=== PATIENT | female | born 1955 | race Caucasian/White ===

== ENCOUNTER 2019-04-10 13:05 | Inpatient (IN) | payer OTHER ==
[2019-04-10 14:08] LABS: BASOPHILS % (AUTO) 0.4 %; EOSINOPHILS # (AUTO) 0.1 10^3/uL (0.0-0.7); HGB - HEMOGLOBIN 12.9 g/dL (12.0-16.0); LYMPHOCYTES # (AUTO) 0.9 10^3/uL (1.5-3.5); LYMPHOCYTES % (AUTO) 7.8 %; MEAN CORPUSCULAR HEMOGLOBIN 28.3 pg (27.0-31.0); MEAN CORPUSCULAR HGB CONC 31.9 g/dL (32.0-36.0); MEAN CORPUSCULAR VOLUME 88.8 fL (81.0-99.0); MEAN PLATELET VOLUME 10.9 fL (7.9-10.8); MONOCYTES # (AUTO) 0.5 10^3/uL (0.0-1.0); MONOCYTES % (AUTO) 4.8 %; NEUTROPHILS # (AUTO) 9.5 10^3/uL (1.5-6.6); NEUTROPHILS % (AUTO) 85.4 %; PLT - PLATELET COUNT 190 10^3/uL (130-450); RED BLOOD COUNT 4.56 10^6/uL (4.20-5.40); RED CELL DISTRIBUTION WIDTH 13.5 % (12.0-15.0); WHITE BLOOD COUNT 11.1 x10^3/uL (4.8-10.8)
[2019-04-10 14:25] LABS: ALBUMIN/GLOBULIN RATIO 1.3 (1.0-2.2); BILIRUBIN,TOTAL 1.3 mg/dL (0.2-1.0); CALCIUM 9.1 mg/dL (8.5-10.3); CREATININE 0.8 mg/dL (0.4-1.0)
--- NOTE | 2019-04-10 15:36 | ED Physician Documentation ---
PD HPI ABD PAIN - Stated complaint Stated Complaint: ABD PX - Chief complaint Chief Complaint: Abd Pain - History obtained from History obtained from: Patient - History of Present Illness Timing - onset: How many days ago (1-2) Timing - duration: Days (1-2) Timing - details: Gradual onset, Still present Quality: Cramping (initially), Aching, Sharp (today), Pain Location: LLQ Radiation: Lower back Improved by: Laying still. No: Eating Worsened by: Moving. No: Eating, Breathing Associated symptoms: No: Fever, Nausea, Vomiting, Diarrhea, Melena Similar symptoms before: Diagnosis (Had diverticulitis with some bleeding in 2014 and had clipping of the bleeding vessel. I believe this was done through colonoscopy.) Recently seen: Not recently seen Review of Systems Constitutional: denies: Fever, Myalgias Nose: denies: Rhinorrhea / runny nose, Congestion Throat: denies: Sore throat Respiratory: denies: Cough GI: reports: Abdominal Pain. denies: Abdominal Swelling, Vomiting, Constipation, Diarrhea : denies: Dysuria, Frequency Neurologic: denies: Generalized weakness, Focal weakness, Numbness, Near syncope PD PAST MEDICAL HISTORY - Past Medical History Cardiovascular: None Respiratory: None Neuro: None Endocrine/Autoimmune: None GI: Diverticulitis (4 years ago) - Allergies Allergies/Adverse Reactions: Allergies Allergy/AdvReac Type Severity Reaction Status Date / Time iodine Allergy Unknown Verified 04/10/19 18:21 PD ED PE NORMAL - Vitals Vital signs reviewed: Yes - General General: Alert and oriented X 3, Well developed/nourished - HEENT HEENT: Moist mucous membranes, Pharynx benign - Neck Neck: Supple, no meningeal sign, No adenopathy - Cardiac Cardiac: RRR, No murmur - Respiratory Respiratory: Clear bilaterally - Abdomen Abdomen: Soft, Non distended, No organomegaly, Other (tender LLQ with local guarding but no percussion. No rebound nor referred tenderness. ) - Female Female : Deferred - Rectal Rectal: Deferred - Back Back: No CVA TTP - Derm Derm: Normal color, Warm and dry - Extremities Extremities: Normal ROM s pain - Neuro Neuro: Alert and oriented X 3, No motor deficit, Normal speech Results - Vitals Vitals: Vital Signs - 24 hr 04/10/19 13:25 Temperature 36.5 C Heart Rate 85 Respiratory 16 Rate Blood Pressure 185/95 H O2 Saturation 98 Oxygen O2 Source Room air - Labs Labs: Laboratory Tests 04/10/19 04/10/19 04/10/19 13:47 13:47 16:00 WBC 11.1 H RBC 4.56 Hgb 12.9 Hct 40.5 MCV 88.8 MCH 28.3 MCHC 31.9 L RDW 13.5 Plt Count 190 MPV 10.9 H Neut # (Auto) 9.5 H Lymph # (Auto) 0.9 L [place] # (Auto) 0.5 Eos # (Auto) 0.1 Baso # (Auto) 0.0 Absolute Nucleated RBC 0.00 Nucleated RBC % 0.0 Sodium 139 Potassium 3.9 Chloride 102 Carbon Dioxide 28 Anion Gap 9.0 BUN 12 Creatinine 0.8 Estimated GFR (MDRD) 73 L Glucose 107 H Calcium 9.1 Total Bilirubin 1.3 H AST 22 ALT 18 Alkaline Phosphatase 91 Total Protein 7.0 Albumin 4.0 Globulin 3.0 Albumin/Globulin Ratio 1.3 Lipase 25 Urine Color YELLOW Urine Clarity CLEAR Urine pH 6.0 Ur Specific [place] 1.010 Urine Protein NEGATIVE Urine Glucose (UA) NEGATIVE Urine Ketones NEGATIVE Urine Occult Blood TRACE-LYSE Urine Nitrite NEGATIVE Urine Bilirubin NEGATIVE Urine Urobilinogen 0.2 (NORMAL) Ur Leukocyte Esterase NEGATIVE Ur Microscopic Review NOT INDICATED Urine Culture Comments NOT INDICATED - Rads (name of study) abd CT Radiology: Prelim report reviewed, Discussed with rads (Left lower quadrant diverticula with diverticulitis and several small air bubbles under the diaphragm. No abscess nor notable free fluid), See rad report PD MEDICAL DECISION MAKING - ED course Complexity details: reviewed results, considered differential, d/w patient, d/w reimbursement consultant (Dr. Mead, surgery, who was concerned about the microperforation, and wanted Unasyn/Flagyl and admission to Hospitalist. He will consult and see if patient develops need for surgery. Talked with Hospitalist who will place patient in the hospital. ) Departure - Departure Disposition: [facility] DC/Xfer Clinical Impression: Acute diverticulitis Condition: Stable Record reviewed to determine appropriate education?: Yes Discharge Date/Time: 04/10/19 18:51
[2019-04-10] MEDS ORDERED: SODIUM CHLORIDE 0.9% 1,000 ML IV ONE (15:58)
[2019-04-10] MEDS ORDERED: cefTRIAXone 1 GM VIAL IVP STA (15:58)
[2019-04-10] MEDS ORDERED: KETOROLAC 30 MG/ML VIAL IVP STA (15:58)
[2019-04-10] MEDS ORDERED: ACETAMINOPHEN 325 MG TABLET PO STA (15:58)
[2019-04-10 16:11] LABS: BILIRUBIN,URINE NEGATIVE (NEGATIVE); GLUCOSE, URINE (UA) NEGATIVE (NEGATIVE); KETONES,URINE (UA) NEGATIVE (NEGATIVE); LEUKOCYTE ESTERASE, URINE NEGATIVE (NEGATIVE); NITRITE,URINE NEGATIVE (NEGATIVE); OCCULT BLOOD,URINE TRACE-LYSE (NEGATIVE); PROTEIN,URINE NEGATIVE (NEGATIVE); UROBILINOGEN,URINE 0.2 (NORMAL) E.U./dL (NORMAL)
[2019-04-10 16:13] LABS: CLARITY,URINE CLEAR (CLEAR)
[2019-04-10] MEDS ORDERED: IOVERSOL 320 100 ML VIAL IVP ONE ×2 (16:16→17:46)
[2019-04-10] MEDS ORDERED: metroNIDAZOLE 500 MG/100 ML 500 MG/100 ML BAG IV ONE (17:12)
--- NOTE | 2019-04-10 17:13 | CT Report ---
Reason: left lower abd pain Procedure Date: 04/10/2019 Accession Number: [id number] / [id number] Procedure: CT - Abdomen/Pelvis W CPT Code: Final Report FULL RESULT: EXAM: CT ABDOMEN AND PELVIS EXAM DATE: 04/10/2019 04:42 PM. CLINICAL HISTORY: Left lower abd pain. COMPARISONS: None. TECHNIQUE: Routine helical CT imaging was performed through the abdomen and pelvis. IV contrast: OPTI 320 100ML. Enteric contrast: No. Reconstructions: Coronal and sagittal. In accordance with CT protocol optimization, one or more of the following dose reduction techniques were utilized for this exam: automated exposure control, adjustment of mA and/or KV based on patient size, or use of iterative reconstructive technique. FINDINGS: Lung Bases: Clear lung bases. No effusion. Moderate-sized hiatal hernia. Liver: Mild diffuse hypoattenuation of parenchyma. Otherwise unremarkable. Gallbladder/Bile Ducts: Surgically absent. No ductal dilation. Spleen: Normal. Pancreas: Normal. Adrenal Glands: Normal. Kidneys: Normal. No masses or hydronephrosis. Peritoneal Cavity/Bowel: Marked colonic diverticulosis with localized wall thickening and infiltration of fat adjacent to the descending sigmoid junction. Small loss of free intraperitoneal air track to the diaphragm. Mild dilation of small bowel loops in the left mid to upper abdomen, most likely ileus. No free fluid, significant bowel dilation, or lymphadenopathy. Normal appendix. Pelvic Organs: Normal. The bladder and visualized pelvic organs are within normal limits. Vasculature: No aneurysms or other significant abnormality. Bones: Degenerative changes. Other: Small to moderate-sized bilateral inguinal hernias with fat involvement only. IMPRESSION: 1. Marked diverticulosis with acute diverticulitis. 2. Small amounts of free intraperitoneal air most likely originating from the diverticulitis. 3. Moderate-sized hiatal hernia, fatty liver, and other chronic or incidental findings. RADIA The critical result notification system was initiated by Dr. Jose Guadalupe Ramos at 05:07 PM on 04/10/2019. The above critical result findings were discussed with Anton Schafer by Dr. Jose Guadalupe Ramos at 05:11 PM on 04/10/2019.
[2019-04-10] MEDS ORDERED: PIPERACILLIN/TAZOBACTAM 3.375 GM in SODIUM CHLORIDE 0.9% MINIBAG 100 ML IV STA (17:19)
[2019-04-10] MEDS ORDERED: PROCHLORPERAZINE 10 MG/2 ML VIAL IVP PRN (17:50)
[2019-04-10] MEDS ORDERED: ONDANSETRON ODT 4 MG TABLET TL PRN (17:50)
[2019-04-10] MEDS ORDERED: hydrALAZINE INJ 20 MG/ML VIAL IVP PRN (18:14)
--- NOTE | 2019-04-10 18:17 | HISTORY & PHYSICAL EXAMINATION ---
Chief Complaint - Chief Complaint Chief Complaint: abdominal pain History of Present Illness - History of Present Illness HPI Comment/Other: Ms. Mcfarlane is a 63-yrs-old female with a PMH significant for diverticulitis with bleeding and clipping of the bleeding vessel in 2014, who present ER complain of left middle lower abdominal pain. pt report she had left middle lower abdominal pain beginning today morning. she denies nausea, vomiting, diarrhea, GI bleeding, fever, chill, chest pain, shortness of breath. CT of abdomen reveal acute diverticulitis, and small amounts of free air intraperitoneal. Route lab reveals slight elevated WBC. pt is afebrile, otherwise she is hemodynamical stable. surgeon was called by ER provider. pt is admitted for above medical reason. History - Family & Social History Family History: Mother: , Cancer, Father: Alive and Well Family History Comment/Other: pt report her mother from pancreatic cancer. her father is still alive with advanced parkinson now. Social History Notes: pt report she quit smoking about 3-4 yrs, she denies acohol and drug issue. she report she is living [place], came to visit her family in [place] Status: Full Code Meds/Allgy - Allergies Allergies/Adverse Reactions: Allergies Allergy/AdvReac Type Severity Reaction Status Date / Time etodolac Allergy Rash Verified 04/10/19 21:34 Review of Systems - Constitutional Constitutional: denies: Fatigue, Fever, Chills, Malaise, Weakness, Poor appetite, Diaphoresis, Night sweats - Eyes Eyes: denies: Pain, Irritation, Blurred vision, Spots in vision, Field loss, Vision loss, Dipolpia - Ears, Nose & Throat Ears, Nose & Throat: denies: Ear pain, Hearing loss, Tinnitus, Vertigo, Nasal pain, Nasal discharge, Nasal obstruction, Postnasal drainage, Sore throat, Mouth lesions - Cardiovascular Cariovascular: denies: Irregular heart rate, Palpitations, Chest pain, Edema, Lightheadedness, Syncope, Exertional dyspnea, Decr. exercise tolerance - Respiratory Respiratory: denies: Cough, Sputum production, Wheezing, Snoring, Hemoptysis, Orthopnea, SOB at rest, SOB with exertion - Gastrointestinal Gastrointestinal: reports: Abdominal pain. denies: Abdominal distention, Constipation, Diarrhea, Change in bowel habits, Rectal bleeding, Black stools, Bloody stools, Nausea, Vomiting, Bile emesis, Lloyd blood emesis, Coffee grounds emesis, Reflux/heartburn - Genitourinary Genitourinary: denies: Dysuria, Frequency, Urgency, Hematuria, Incontinence, Flank pain, Nocturia, Urethral discharge - Musculoskeletal Musculoskeletal: denies: Muscle pain, Back pain, Muscle aches, Stiffness, Limited range of motion, Muscle weakness, Gout, Joint pain - Integumentary Integumentary: denies: Rash, Pruritis, Lesions, Dryness, Lumps, Acne, Pigment changes, Nail changes - Neurological Neurological: denies: General weakness, Focal weakness, Headache, Dizziness, Numbness, Memory problems, Pre-existing deficit, Abnormal gait - Psychiatric Psychiatric: denies: Depression, Anxiety, Suicidal, Delusions, Hallucinations, Homicidal - Endocrine Endocrine: denies: Polyuria, Polydypsia, Polyphagia, Intolerance to cold - Hematologic/Lymphatic Hematologic/Lymphatic: denies: Anemia, Bruising, Petechiae, Blood clots, Lymphadenopathy, Bleeding tendencies Exam - Vital Signs Reviewed Vital Signs: Yes Vital Signs: Vital Signs x48h Temp Pulse Resp BP Pulse Ox 04/10/19 13:25 36.5 C 85 16 185/95 H 98 - Physical Exam General Appearance: positive: No acute distress, Alert. negative: Lethargic Eyes Bilateral: positive: Normal inspection, PERRL, EOMI. negative: No lid inflammation ENT: positive: ENT inspection nml, No signs of dehydration. negative: Purulent nasal drainage Neck: positive: Nml inspection, Thyroid nml, No JVD, Trachea midline. negative: Thyromegaly, Lymphadenopathy (R), Lymphadenopathy (L), Stiff neck, Tracheal deviation Respiratory: positive: Chest non-tender, No respiratory distress, Breath sounds nml. negative: Wheezes, Rales, Rhonchi Cardiovascular: positive: Regular rate & rhythm, No murmur, No gallop. negative: Irregularly irregular, Extrasystoles, Tachycardia, Bradycardia, JVD present, Systolic murmur, Diastolic murmur Peripheral Pulses: positive: 2+ Abdomen: positive: Non-tender, No organomegaly, Nml bowel sounds, No distention. negative: Tenderness, Guarding, Rebound Back: positive: Nml inspection. negative: CVA tenderness (R), CVA tenderness (L) Skin: positive: Color nml, No rash, Warm, Dry. negative: Cyanosis, Diaphoresis, Pallor Extremities: positive: Non-tender, Full ROM, Nml appearance. negative: Calf tenderness, Carlene's sign/cords Neurologic/Psychiatric: positive: Oriented x3, Motor nml, Sensation nml, Mood/affect nml. negative: Weakness, Sensory loss, Facial droop, Slurred/abnml speech Sepsis Event Note (H) - Evaluation Current Stage of Sepsis: Ruled out Conclusion/Plan - Problem List (1) Acute diverticulitis Conclusion/Plan: pt had hx of diverticulitis, CT reveal diverticulitis. pt has lower middle left abdominal pain, slight elevated WBC start Zosyn IVF pain control (2) Free intraperitoneal air Conclusion/Plan: concern pt if has perforation of bowel because free air at intraperitoneal. consulted with surgeon closely monitor pt, vital monitor (3) HTN (hypertension) Conclusion/Plan: slight elevated BP, which could be caused by abdominal pain. add hydralazine as PRN (4) Obesity (BMI 35.0-39.9 without comorbidity) Conclusion/Plan: advise pt loss of weight (5) Full code status Conclusion/Plan: pt request full code - Lab Results Fish Bones: 04/11/19 04:30 04/11/19 04:30 Core Measures - Anticipated LOS I expect patient to be DC'd or transferred within 96 hours.: Yes - DVT/VTE - Prophylaxis VTE/DVT Device ordered at admit?: Yes VTE/DVT Prophylaxis med ordered at admit?: Yes
[2019-04-10] MEDS: ACETAMINOPHEN 325 MG TABLET PO PRN (19:08)
[2019-04-10] MEDS: SODIUM CHLORIDE 0.9% 1,000 ML IV SCH (19:09)
[2019-04-11] MEDS: ACETAMINOPHEN 325 MG TABLET PO PRN ×4 (00:30→18:24)
[2019-04-11] MEDS: PIPERACILLIN/TAZOBACTAM 3.375 GM in SODIUM CHLORIDE 0.9% MINIBAG 100 ML IV SCH ×4 (00:30→17:32)
[2019-04-11] MEDS: SODIUM CHLORIDE FLUSH 0.9% 10 ML SYRINGE IVP SCH ×3 (00:31→17:01)
[2019-04-11 05:00] LABS: BASOPHILS % (AUTO) 0.4 %; EOSINOPHILS # (AUTO) 0.1 10^3/uL (0.0-0.7); EOSINOPHILS % (AUTO) 1.2 %; HGB - HEMOGLOBIN 11.5 g/dL (12.0-16.0); LYMPHOCYTES # (AUTO) 0.9 10^3/uL (1.5-3.5); LYMPHOCYTES % (AUTO) 10.4 %; MEAN CORPUSCULAR HEMOGLOBIN 29.1 pg (27.0-31.0); MEAN CORPUSCULAR HGB CONC 31.9 g/dL (32.0-36.0); MEAN CORPUSCULAR VOLUME 91.1 fL (81.0-99.0); MEAN PLATELET VOLUME 11.1 fL (7.9-10.8); MONOCYTES # (AUTO) 0.5 10^3/uL (0.0-1.0); MONOCYTES % (AUTO) 5.8 %; NEUTROPHILS % (AUTO) 81.6 %; PLT - PLATELET COUNT 154 10^3/uL (130-450); RED BLOOD COUNT 3.95 10^6/uL (4.20-5.40); RED CELL DISTRIBUTION WIDTH 13.4 % (12.0-15.0); WHITE BLOOD COUNT 8.6 x10^3/uL (4.8-10.8)
[2019-04-11 05:13] LABS: CALCIUM 8.4 mg/dL (8.5-10.3); CREATININE 0.7 mg/dL (0.4-1.0)
[2019-04-11] MEDS: POTASSIUM CHLOR 10 MEQ/100 ML 10 MEQ/100 ML BAG IV SCH ×4 (06:43→09:58)
[2019-04-11] MEDS: SODIUM CHLORIDE 0.9% 1,000 ML IV SCH ×2 (06:43→07:49)
--- NOTE | 2019-04-11 07:47 | CONSULTATION NOTE ---
Referring Provider Name of Referring Provider:: Gibson Chief Complaint - Chief Complaint Chief Complaint: LLQ pain History of Present Illness - History of Present Illness HPI Comment/Other: Timing - onset: How many days ago (1-2) Timing - duration: Days (1-2) Timing - details: Gradual onset, Still present Quality: Cramping (initially), Aching, Sharp (today), Pain Location: LLQ Radiation: Lower back Improved by: Laying still. No: Eating Worsened by: Moving. No: Eating, Breathing Associated symptoms: No: Fever, Nausea, Vomiting, Diarrhea, Melena Similar symptoms before: Diagnosis (Had diverticulitis with some bleeding in 2014 and had clipping of the bleeding vessel. I believe this was done through colonoscopy.) History - Past Medical History Cardiovascular: reports: None (Underwent colonoscopic clipping of diverticular bleed in the past) Respiratory: reports: None Neuro: reports: None Endocrine/Autoimmune: reports: None GI: reports: Diverticulitis Meds/Allgy - Allergies Allergies/Adverse Reactions: Allergies Allergy/AdvReac Type Severity Reaction Status Date / Time etodolac Allergy Rash Verified 04/10/19 21:34 Review of Systems - Gastrointestinal Gastrointestinal: reports: Abdominal pain (LLQ pain. Better somewhat this am) Exam - Vital Signs Reviewed Vital Signs: Yes Vital Signs: Vital Signs x48h Temp Pulse Pulse Resp BP Pulse Ox 04/11/19 04:06 36.9 C 88 18 98 04/11/19 00:00 36.9 C 88 18 159/54 H 98 - Physical Exam General Appearance: positive: No acute distress Eyes Bilateral: positive: Normal inspection Neck: positive: Nml inspection Respiratory: positive: No respiratory distress Abdomen: positive: Tenderness (Moderate tenderness LLQ. No rebound) Conclusion and Plan - Lab Results Laboratory Results 04/11/19 04:30: Sodium 140, Potassium 3.2 L, Chloride 105, Carbon Dioxide 27, Anion Gap 8.0, BUN 9, Creatinine 0.7, Estimated GFR (MDRD) 85 L, Glucose 101 H, Calcium 8.4 L 04/11/19 04:30: WBC 8.6, RBC 3.95 L, Hgb 11.5 L, Hct 36.0 L, MCV 91.1, MCH 29.1, MCHC 31.9 L, RDW 13.4, Plt Count 154, MPV 11.1 H, Neut # (Auto) 7.0 H, Lymph # (Auto) 0.9 L, [place] # (Auto) 0.5, Eos # (Auto) 0.1, Baso # (Auto) 0.0, Absolute Nucleated RBC 0.00, Nucleated RBC % 0.0 04/10/19 16:00: Urine Color YELLOW, Urine Clarity CLEAR, Urine pH 6.0, Ur Specific [place] 1.010, Urine Protein NEGATIVE, Urine Glucose (UA) NEGATIVE, Urine Ketones NEGATIVE, Urine Occult Blood TRACE-LYSE, Urine Nitrite NEGATIVE, Urine Bilirubin NEGATIVE, Urine Urobilinogen 0.2 (NORMAL), Ur Leukocyte Esterase NEGATIVE, Ur Microscopic Review NOT INDICATED, Urine Culture Comments NOT INDICATED 04/10/19 13:47: Sodium 139, Potassium 3.9, Chloride 102, Carbon Dioxide 28, Anion Gap 9.0, BUN 12, Creatinine 0.8, Estimated GFR (MDRD) 73 L, Glucose 107 H, Calcium 9.1, Total Bilirubin 1.3 H, AST 22, ALT 18, Alkaline Phosphatase 91, Total Protein 7.0, Albumin 4.0, Globulin 3.0, Albumin/Globulin Ratio 1.3, Lipase 25 04/10/19 13:47: WBC 11.1 H, RBC 4.56, Hgb 12.9, Hct 40.5, MCV 88.8, MCH 28.3, MCHC 31.9 L, RDW 13.5, Plt Count 190, MPV 10.9 H, Neut # (Auto) 9.5 H, Lymph # (Auto) 0.9 L, [place] # (Auto) 0.5, Eos # (Auto) 0.1, Baso # (Auto) 0.0, Absolute Nucleated RBC 0.00, Nucleated RBC % 0.0 - Diagnosis Diagnosis: Acute diverticulitis w/microperforation - Plan Plan: Cont IV ABX / Bowel rest May need elective sigmoidectomy in the future
[2019-04-11] MEDS: ENOXAPARIN 40 MG/0.4 ML SYRINGE SUBQ SCH (09:58)
--- NOTE | 2019-04-11 11:26 | PHARMACY PROGRESS NOTE ---
- Best Possible Medication History Admit Date and Time: 04/10/19 1750 Processed by: Pharmacy Medication History completed: Yes Patient Interview: Pt interview ONLY source As the person ultimately responsible for medication therapy, providers are able to order a medication from an existing home medication list in [facility] via the "Reconcile Routine" prior to Confirmation of that medication by student support counselor. Such practice is discouraged except when the physician, in their clinical judgment, deems that a medical need exists for a medication without regard to previous use.
--- NOTE | 2019-04-11 12:45 | PROVIDER PROGRESS NOTE ---
Assessment/Plan - Problem List (1) Acute diverticulitis Assessment/Plan: 04/11 pt report she feel better, abdominal pain is better. she denies fever, chill, N/V/D. WBC is running down to normal now. per surgeon, pt is still on NPO and bowel rest now continue antibiotics and pain contro continue D5 1/2 NS with 20 meq of Potassium continue lab and vital monitor pt had hx of diverticulitis, CT reveal diverticulitis. pt has lower middle left abdominal pain, slight elevated WBC start Zosyn IVF pain control (2)hypokalemia pt has potassium 3.2 today. replacement of potassium, lab monitor (3) Free intraperitoneal air Conclusion/Plan: 04/11, pt report she feel better, abdominal pain is good controlled, WBC is down. followup surgeon continue antibiotics, pain control, IVF concern pt if has perforation of bowel because free air at intraperitoneal. consulted with surgeon closely monitor pt, vital monitor (4) HTN (hypertension) Conclusion/Plan: 04/11 stable. slight elevated BP, which could be caused by abdominal pain. add hydralazine as PRN (5) Obesity (BMI 35.0-39.9 without comorbidity) Conclusion/Plan: advise pt loss of weight - Current Meds Current Meds: Current Medications Generic Name Dose Route Start Last Admin Trade Name Freq PRN Reason Stop Dose Admin Acetaminophen 650 mg 04/10/19 18:11 04/11/19 06:52 Tylenol PO 650 mg Q4HR PRN Administration Pain or Fever > 38C (100.4F) Enoxaparin Sodium 40 mg 04/11/19 09:00 04/11/19 09:58 Lovenox SUBQ Not Given DAILY CASSI Piperacillin Sod/Tazobactam 100 mls @ 200 mls/hr 04/11/19 00:00 04/11/19 12:34 Sod 3.375 gm/ Sodium Chloride IV Infused Q6H [facility] Infusion Sodium Chloride 10 ml 04/11/19 01:00 04/11/19 09:58 Normal Saline Flush 0.9% IVP Not Given 0100,0900,1700 CASSI - Lab Result Fish Bone Diagrams: 04/11/19 04:30 04/11/19 04:30 - Additional Planning My Orders: My Active Orders 04/10/19 18:11 Acetaminophen [Tylenol] 650 mg PO Q4HR PRN 04/10/19 18:14 hydrALAZINE INJ [Apresoline Inj] 10 mg IVP QID PRN 04/11/19 09:00 Enoxaparin [Lovenox] 40 mg SUBQ DAILY 04/11/19 13:00 D5.45ns W/20 Meq KCl 1,000 ml IV 100 mls/hr Subjective - Subjective Patient Reports: Feeling Better Objective Vital Signs: Vital Signs - 24 hr 04/10/19 04/10/19 04/10/19 13:25 18:29 19:25 Temperature 36.5 C 36.7 C Heart Rate 85 78 Heart Rate [ 81 Monitoring electrodes] Respiratory 16 18 19 Rate Blood Pressure 185/95 H 144/88 H Blood Pressure 160/100 H [Right Brachial artery] O2 Saturation 98 98 97 04/10/19 04/11/19 04/11/19 22:15 00:00 04:06 Temperature 36.9 C 36.9 C Heart Rate 88 Heart Rate [ 88 Monitoring electrodes] Respiratory 18 18 Rate Blood Pressure Blood Pressure 150/98 H 159/54 H [Right Brachial artery] O2 Saturation 98 98 04/11/19 08:00 Temperature 37.3 C Heart Rate Heart Rate [ 82 Monitoring electrodes] Respiratory 20 Rate Blood Pressure Blood Pressure 135/80 H [Right Brachial artery] O2 Saturation 96 Oxygen O2 Source Room air I&O (Last 24 Hrs): Intake and Output Totals x24h 04/09/19 04/10/19 04/11/19 23:59 23:59 23:59 Intake Total 5116.441 0279.333 Balance 1047.437 8780.333 General: Alert, Oriented x3, No acute distress HEENT: Atraumatic Neck: Supple Lymphatic: no adenopathy Neuro: Alert, Non Focal, Oriented Times 3 Cardiovascular: Regular rate, Normal S1, Normal S2 Respiratory: Chest non-tender, No respiratory distress, Breath sounds nml Abdomen: Normal bowel sounds, Soft, No tenderness Extremities: No edema, Normal pulses - Results Results: Laboratory Results WBC 8.6 x10^3/uL (4.8-10.8) 04/11/19 04:30 RBC 3.95 10^6/uL (4.20-5.40) L 04/11/19 04:30 Hgb 11.5 g/dL (12.0-16.0) L 04/11/19 04:30 Hct 36.0 % (37.0-47.0) L 04/11/19 04:30 MCV 91.1 fL (81.0-99.0) 04/11/19 04:30 MCH 29.1 pg (27.0-31.0) 04/11/19 04:30 MCHC 31.9 g/dL (32.0-36.0) L 04/11/19 04:30 RDW 13.4 % (12.0-15.0) 04/11/19 04:30 Plt Count 154 10^3/uL (130-450) 04/11/19 04:30 MPV 11.1 fL (7.9-10.8) H 04/11/19 04:30 Neut # (Auto) 7.0 10^3/uL (1.5-6.6) H 04/11/19 04:30 Lymph # (Auto) 0.9 10^3/uL (1.5-3.5) L 04/11/19 04:30 [place] # (Auto) 0.5 10^3/uL (0.0-1.0) 04/11/19 04:30 Eos # (Auto) 0.1 10^3/uL (0.0-0.7) 04/11/19 04:30 Baso # (Auto) 0.0 10^3/uL (0.0-0.1) 04/11/19 04:30 Absolute Nucleated RBC 0.00 x10^3/uL 04/11/19 04:30 Nucleated RBC % 0.0 /100WBC 04/11/19 04:30 Sodium 140 mmol/L (135-145) 04/11/19 04:30 Potassium 3.2 mmol/L (3.5-5.0) L 04/11/19 04:30 Chloride 105 mmol/L (101-111) 04/11/19 04:30 Carbon Dioxide 27 mmol/L (21-32) 04/11/19 04:30 Anion Gap 8.0 (6-13) 04/11/19 04:30 BUN 9 mg/dL (6-20) 04/11/19 04:30 Creatinine 0.7 mg/dL (0.4-1.0) 04/11/19 04:30 Estimated GFR (MDRD) 85 (>89) L 04/11/19 04:30 Glucose 101 mg/dL (70-100) H 04/11/19 04:30 Calcium 8.4 mg/dL (8.5-10.3) L 04/11/19 04:30 Total Bilirubin 1.3 mg/dL (0.2-1.0) H 04/10/19 13:47 AST 22 IU/L (10-42) 04/10/19 13:47 ALT 18 IU/L (10-60) 04/10/19 13:47 Alkaline Phosphatase 91 IU/L (42-121) 04/10/19 13:47 Total Protein 7.0 g/dL (6.7-8.2) 04/10/19 13:47 Albumin 4.0 g/dL (3.2-5.5) 04/10/19 13:47 Globulin 3.0 g/dL (2.1-4.2) 04/10/19 13:47 Albumin/Globulin Ratio 1.3 (1.0-2.2) 04/10/19 13:47 Lipase 25 U/L (22-51) 04/10/19 13:47 Urine Color YELLOW 04/10/19 16:00 Urine Clarity CLEAR (CLEAR) 04/10/19 16:00 Urine pH 6.0 PH (5.0-7.5) 04/10/19 16:00 Ur Specific [place] 1.010 (1.002-1.030) 04/10/19 16:00 Urine Protein NEGATIVE mg/dL (NEGATIVE) 04/10/19 16:00 Urine Glucose (UA) NEGATIVE mg/dL (NEGATIVE) 04/10/19 16:00 Urine Ketones NEGATIVE mg/dL (NEGATIVE) 04/10/19 16:00 Urine Occult Blood TRACE-LYSE (NEGATIVE) 04/10/19 16:00 Urine Nitrite NEGATIVE (NEGATIVE) 04/10/19 16:00 Urine Bilirubin NEGATIVE (NEGATIVE) 04/10/19 16:00 Urine Urobilinogen 0.2 (NORMAL) E.U./dL (NORMAL) 04/10/19 16:00 Ur Leukocyte Esterase NEGATIVE (NEGATIVE) 04/10/19 16:00 Ur Microscopic Review NOT INDICATED 04/10/19 16:00 Urine Culture Comments NOT INDICATED 04/10/19 16:00 Sepsis Event Note (H) - Evaluation Current Stage of Sepsis: Ruled out ABX Reporting Has patient been on IV antibiotics over the past 48 hours?: Yes Current Medications - Current Medications Current Medications: Active Medications Acetaminophen (Tylenol) 650 mg PO Q4HR PRN PRN Reason: Pain or Fever > 38C (100.4F) Last Admin: 04/11/19 06:52 Dose: 650 mg Enoxaparin Sodium (Lovenox) 40 mg SUBQ DAILY [facility] Last Admin: 04/11/19 09:58 Dose: Not Given Hydralazine HCl (Apresoline Inj) 10 mg IVP QID PRN PRN Reason: Hypertensive Emergency Piperacillin Sod/Tazobactam (Sod 3.375 gm/ Sodium Chloride) 100 mls @ 200 mls/hr IV Q6H [facility] Last Infusion: 04/11/19 12:34 Dose: Infused Potassium Chloride/Dextrose/Sod Cl (D5.45ns W/20 Meq Kcl) 1,000 mls @ 100 mls/hr IV .Q10H [facility] Morphine Sulfate (Morphine (Carpuject)) 2 mg IVP Q2HR PRN PRN Reason: Pain 8 to 10 Ondansetron HCl (Zofran Inj) 4 mg IVP Q6HR PRN PRN Reason: Nausea / Vomiting Ondansetron HCl (Zofran Odt) 4 mg TL Q6HR PRN PRN Reason: Nausea / Vomiting Prochlorperazine Edisylate (Compazine Inj) 10 mg IVP Q6HR PRN PRN Reason: Nausea / Vomiting Sodium Chloride (Normal Saline Flush 0.9%) 10 ml IVP PRN PRN PRN Reason: NEEDED PER PROVIDER ORDERS Sodium Chloride (Normal Saline Flush 0.9%) 10 ml IVP 0100,0900,1700 [facility] Last Admin: 04/11/19 09:58 Dose: Not Given No Known Home Medications 04/11/19
[2019-04-11] MEDS: D5.45NS W/20 MEQ KCL 1,000 ML IV SCH ×2 (13:05→22:47)
[2019-04-12] MEDS: ACETAMINOPHEN 325 MG TABLET PO PRN ×2 (00:12→06:04)
[2019-04-12] MEDS: PIPERACILLIN/TAZOBACTAM 3.375 GM in SODIUM CHLORIDE 0.9% MINIBAG 100 ML IV SCH ×5 (00:13→23:58)
[2019-04-12] MEDS: SODIUM CHLORIDE FLUSH 0.9% 10 ML SYRINGE IVP SCH ×3 (00:16→16:20)
[2019-04-12 05:35] LABS: BASOPHILS % (AUTO) 0.3 %; EOSINOPHILS # (AUTO) 0.2 10^3/uL (0.0-0.7); EOSINOPHILS % (AUTO) 3.5 %; HGB - HEMOGLOBIN 11.5 g/dL (12.0-16.0); LYMPHOCYTES # (AUTO) 1.1 10^3/uL (1.5-3.5); LYMPHOCYTES % (AUTO) 15.8 %; MEAN CORPUSCULAR HEMOGLOBIN 28.5 pg (27.0-31.0); MEAN CORPUSCULAR HGB CONC 31.3 g/dL (32.0-36.0); MEAN CORPUSCULAR VOLUME 90.8 fL (81.0-99.0); MEAN PLATELET VOLUME 10.9 fL (7.9-10.8); MONOCYTES # (AUTO) 0.5 10^3/uL (0.0-1.0); MONOCYTES % (AUTO) 6.7 %; NEUTROPHILS % (AUTO) 73.3 %; PLT - PLATELET COUNT 168 10^3/uL (130-450); RED BLOOD COUNT 4.04 10^6/uL (4.20-5.40); RED CELL DISTRIBUTION WIDTH 13.3 % (12.0-15.0); WHITE BLOOD COUNT 6.8 x10^3/uL (4.8-10.8)
[2019-04-12 05:57] LABS: CALCIUM 8.9 mg/dL (8.5-10.3); CREATININE 0.5 mg/dL (0.4-1.0)
[2019-04-12] MEDS ORDERED: POTASSIUM CHLORIDE 20 MEQ TABLET PO ONE (06:23)
[2019-04-12] MEDS: MORPHINE 2 MG/ML CARPUJECT IVP PRN ×2 (08:48→12:01)
[2019-04-12] MEDS ORDERED: POTASSIUM CHLORIDE 20 MEQ TABLET PO SCH (08:53)
[2019-04-12] MEDS ORDERED: IOVERSOL 320 100 ML VIAL IVP ONE ×2 (09:19→10:18)
[2019-04-12] MEDS: ENOXAPARIN 40 MG/0.4 ML SYRINGE SUBQ SCH (10:42)
[2019-04-12] MEDS: D5.45NS W/20 MEQ KCL 1,000 ML IV SCH ×2 (11:12→23:58)
[2019-04-12] MEDS: ONDANSETRON 4 MG/2 ML VIAL IVP PRN (12:05)
--- NOTE | 2019-04-12 12:48 | CT Report ---
Reason: acute abdominal pain Procedure Date: 04/12/2019 Accession Number: [id number] / [id number] Procedure: CT - Abdomen/Pelvis W CPT Code: Final Report FULL RESULT: EXAM: CT ABDOMEN AND PELVIS EXAM DATE: 04/12/2019 09:47 AM. CLINICAL HISTORY: Acute abdominal pain. COMPARISONS: ABDOMEN/PELVIS W/ 04/10/2019 4:36 PM images and report from [facility]. TECHNIQUE: Routine helical CT imaging was performed through the abdomen and pelvis. IV contrast: OPTI 320 100 mL. Enteric contrast: No. Reconstructions: Coronal and sagittal. In accordance with CT protocol optimization, one or more of the following dose reduction techniques were utilized for this exam: automated exposure control, adjustment of mA and/or KV based on patient size, or use of iterative reconstructive technique. FINDINGS: Lung Bases: Unremarkable. Liver: Normal. No masses. Gallbladder/Bile Ducts: Gallbladder has been removed. No intrahepatic bile duct distention. Spleen: Normal. Pancreas: Normal. Adrenal Glands: Normal. Kidneys: Normal. No masses or hydronephrosis. Peritoneal Cavity/Bowel: As of the previous examination, there is some inflammation surrounding the left lower quadrant sigmoid colon. Extensive diverticulosis is present. A small adjacent rim of fluid is seen in the midportion of the sigmoid colon which is more prominent now than on the previous exam. Series 3 image 64. Also please note that at least 2 adjacent loops of small bowel are also thickened and inflamed and there is a significant amount of surrounding mesenteric inflammatory change. These features also show progression since the previous study. The appendix is well visualized and normal. Pelvic Organs: Normal. The bladder and visualized pelvic organs are within normal limits. Vasculature: No aneurysms or other significant abnormality. Bones: No significant abnormality. Other: Large hiatus hernia. IMPRESSION: 1. As on the previous examination, left lower quadrant inflammation surrounds the sigmoid colon. There has been progression since the comparison study. Although no discrete focal abscesses are noted, there is a thin rim of fluid which is adjacent to the sigmoid colon which is larger than before. Also please note that at least 2 loops of small bowel adjacent to the colon are thickened. Some mesenteric thickening and inflammatory changes are also noted. RADIA
--- NOTE | 2019-04-12 13:58 | PROVIDER PROGRESS NOTE ---
Assessment/Plan - Problem List (1) Acute diverticulitis Assessment/Plan: 04/12. pt present localization pain on her left middle abdomen after she took meds, she also felt full on left middle abdomen. Pt did not have fever, WBC is continuing down to normal. Re-visit to pt, pt is comfortable sleeping. Immediate order CT with contrast on STAT. CT result reveals progression comparison with the previous study, there is a thin rim of fluid which is adjacent to the sigmoid colon is larger than before, at least 2 loops of small bowel adjacent to the colon are thickened, some mesenteric thickening and inflam matory changes. called surgeon to report the new CT of abdomen result, Per discussion with surgeon, add Flagyl, start clear diet, pain control. Pt's WBC is normal, pt has no fever, no N/V/D. closely vital and lab monitor 04/11 pt report she feel better, abdominal pain is better. she denies fever, chill, N/V/D. WBC is running down to normal now. per surgeon, pt is still on NPO and bowel rest now continue antibiotics and pain contro continue D5 1/2 NS with 20 meq of Potassium continue lab and vital monitor pt had hx of diverticulitis, CT reveal diverticulitis. pt has lower middle left abdominal pain, slight elevated WBC start Zosyn IVF pain control (2)hypokalemia 04/12 K ia 3.4, and replacement of potassium, and lab monitor pt has potassium 3.2 today. replacement of potassium, lab monitor (3) Free intraperitoneal air Conclusion/Plan: 04/[address] did not reveal free air intraperitoneal, pt's WBC is continuing to run down, pt has no fever or chill. discussed surgeon, add above management. 04/11, pt report she feel better, abdominal pain is good controlled, WBC is down. followup surgeon continue antibiotics, pain control, IVF concern pt if has perforation of bowel because free air at intraperitoneal. consulted with surgeon closely monitor pt, vital monitor (4) HTN (hypertension) Conclusion/Plan: 04/11 stable. slight elevated BP, which could be caused by abdominal pain. add hydralazine as PRN (5) Obesity (BMI 35.0-39.9 without comorbidity) Conclusion/Plan: advise pt loss of weight - Current Meds Current Meds: Current Medications Generic Name Dose Route Start Last Admin Trade Name Freq PRN Reason Stop Dose Admin Acetaminophen 650 mg 04/10/19 18:11 04/12/19 06:04 Tylenol PO 650 mg Q4HR PRN Administration Pain or Fever > 38C (100.4F) Enoxaparin Sodium 40 mg 04/11/19 09:00 04/12/19 10:42 Lovenox SUBQ Not Given DAILY [facility] Piperacillin Sod/Tazobactam 100 mls @ 200 mls/hr 04/11/19 00:00 04/12/19 12:3 9 Sod 3.375 gm/ Sodium Chloride IV Infused Q6H [facility] Infusion Potassium Chloride/Dextrose/Sod Cl 1,000 mls @ 100 mls/hr 04/11/19 13:00 04/12/19 11:12 D5.45ns W/20 Meq Kcl IV 100 mls/hr .Q10H [facility] Administration Morphine Sulfate 2 mg 04/10/19 17:50 04/12/19 12:01 Morphine (Carpuject) IVP 2 mg Q2HR PRN Administration Pain 8 to 10 Ondansetron HCl 4 mg 04/10/19 17:50 04/12/19 12:05 Zofran Inj IVP 4 mg Q6HR PRN Administration Nausea / Vomiting Sodium Chloride 10 ml 04/11/19 01:00 04/12/19 10:42 Normal Saline Flush 0.9% IVP Not Given 0100,0900,1700 [facility] - Lab Result Fish Bone Diagrams: 04/12/19 05:05 04/12/19 15:40 - Additional Planning My Orders: My Active Orders 04/11/19 13:00 D5.45ns W/20 Meq KCl 1,000 ml IV 100 mls/hr 04/11/19 14:20 Nutrition Consult [CONS] Routine 04/12/19 12:08 NPO except Meds [DIET] Subjective - Subjective Patient Reports: Abdominal Pain Objective Vital Signs: Vital Signs - 24 hr 04/11/19 04/12/19 04/12/19 15:53 00:00 08:00 Temperature 37 C 36.7 C 36.5 C Heart Rate [ 77 64 Brachial] Heart Rate [ 72 Monitoring electrodes] Respiratory 22 18 20 Rate Blood Pressure 161/82 H 129/85 H 144/88 H [Right Brachial artery] O2 Saturation 97 99 99 Oxygen O2 Source Room air I&O (Last 24 Hrs): Intake and Output Totals x24h 04/10/19 04/11/19 04/12/19 23:59 23:59 23:59 Intake Total 2186.208 2812.333 1320 Balance 3199.876 3088.333 1320 General: Alert, Mild distress HEENT: Atraumatic, PERRLA, EOMI Neck: Supple Lymphatic: no adenopathy Neuro: Alert, Non Focal, Oriented Times 3 Cardiovascular: Regular rate, Normal S1, Normal S2 Respiratory: Chest non-tender, No respiratory distress, Breath sounds nml Abdomen: Normal bowel sounds, Soft Extremities: Normal pulses - Results Results: Laboratory Results WBC 6.8 x10^3/uL (4.8-10.8) 04/12/19 05:05 RBC 4.04 10^6/uL (4.20-5.40) L 04/12/19 05:05 Hgb 11.5 g/dL (12.0-16.0) L 04/12/19 05:05 Hct 36.7 % (37.0-47.0) L 04/12/19 05:05 MCV 90.8 fL (81.0-99.0) 04/12/19 05:05 MCH 28.5 pg (27.0-31.0) 04/12/19 05:05 MCHC 31.3 g/dL (32.0-36.0) L 04/12/19 05:05 RDW 13.3 % (12.0-15.0) 04/12/19 05:05 Plt Count 168 10^3/uL (130-450) 04/12/19 05:05 MPV 10.9 fL (7.9-10.8) H 04/12/19 05:05 Neut # (Auto) 5.0 10^3/uL (1.5-6.6) 04/12/19 05:05 Lymph # (Auto) 1.1 10^3/uL (1.5-3.5) L 04/12/19 05:05 [place] # (Auto) 0.5 10^3/uL (0.0-1.0) 04/12/19 05:05 Eos # (Auto) 0.2 10^3/uL (0.0-0.7) 04/12/19 05:05 Baso # (Auto) 0.0 10^3/uL (0.0-0.1) 04/12/19 05:05 Absolute Nucleated RBC 0.00 x10^3/uL 04/12/19 05:05 Nucleated RBC % 0.0 /100WBC 04/12/19 05:05 Sodium 143 mmol/L (135-145) 04/12/19 05:05 Potassium 3.4 mmol/L (3.5-5.0) L 04/12/19 05:05 Chloride 107 mmol/L (101-111) 04/12/19 05:05 Carbon Dioxide 28 mmol/L (21-32) 04/12/19 05:05 Anion Gap 8.0 (6-13) 04/12/19 05:05 BUN 6 mg/dL (6-20) 04/12/19 05:05 Creatinine 0.5 mg/dL (0.4-1.0) 04/12/19 05:05 Estimated GFR (MDRD) 125 (>89) 04/12/19 05:05 Glucose 103 mg/dL (70-100) H 04/12/19 05:05 Calcium 8.9 mg/dL (8.5-10.3) 04/12/19 05:05 Total Bilirubin 1.3 mg/dL (0.2-1.0) H 04/10/19 13:47 AST 22 IU/L (10-42) 04/10/19 13:47 ALT 18 IU/L (10-60) 04/10/19 13:47 Alkaline Phosphatase 91 IU/L (42-121) 04/10/19 13:47 Total Protein 7.0 g/dL (6.7-8.2) 04/10/19 13:47 Albumin 4.0 g/dL (3.2-5.5) 04/10/19 13:47 Globulin 3.0 g/dL (2.1-4.2) 04/10/19 13:47 Albumin/Globulin Ratio 1.3 (1.0-2.2) 04/10/19 13:47 Lipase 25 U/L (22-51) 04/10/19 13:47 Urine Color YELLOW 04/10/19 16:00 Urine Clarity CLEAR (CLEAR) 04/10/19 16:00 Urine pH 6.0 PH (5.0-7.5) 04/10/19 16:00 Ur Specific [place] 1.010 (1.002-1.030) 04/10/19 16:00 Urine Protein NEGATIVE mg/dL (NEGATIVE) 04/10/19 16:00 Urine Glucose (UA) NEGATIVE mg/dL (NEGATIVE) 04/10/19 16:00 Urine Ketones NEGATIVE mg/dL (NEGATIVE) 04/10/19 16:00 Urine Occult Blood TRACE-LYSE (NEGATIVE) 04/10/19 16:00 Urine Nitrite NEGATIVE (NEGATIVE) 04/10/19 16:00 Urine Bilirubin NEGATIVE (NEGATIVE) 04/10/19 16:00 Urine Urobilinogen 0.2 (NORMAL) E.U./dL (NORMAL) 04/10/19 16:00 Ur Leukocyte Esterase NEGATIVE (NEGATIVE) 04/10/19 16:00 Ur Microscopic Review NOT INDICATED 04/10/19 16:00 Urine Culture Comments NOT INDICATED 04/10/19 16:00 ABX Reporting Has patient been on IV antibiotics over the past 48 hours?: Yes Current Medications - Current Medications Current Medications: Active Medications Acetaminophen (Tylenol) 650 mg PO Q4HR PRN PRN Reason: Pain or Fever > 38C (100.4F) Last Admin: 04/12/19 06:04 Dose: 650 mg Enoxaparin Sodium (Lovenox) 40 mg SUBQ DAILY [facility] Last Admin: 04/12/19 10:42 Dose: Not Given Hydralazine HCl (Apresoline Inj) 10 mg IVP QID PRN PRN Reason: Hypertensive Emergency Piperacillin Sod/Tazobactam (Sod 3.375 gm/ Sodium Chloride) 100 mls @ 200 mls/hr IV Q6H [facility] Last Infusion: 04/12/19 12:39 Dose: Infused Potassium Chloride/Dextrose/Sod Cl (D5.45ns W/20 Meq Kcl) 1,000 mls @ 100 mls/hr IV .Q10H [facility] Last Admin: 04/12/19 11:12 Dose: 100 mls/hr Morphine Sulfate (Morphine (Carpuject)) 2 mg IVP Q2HR PRN PRN Reason: Pain 8 to 10 Last Admin: 04/12/19 12:01 Dose: 2 mg Ondansetron HCl (Zofran Inj) 4 mg IVP Q6HR PRN PRN Reason: Nausea / Vomiting Last Admin: 04/12/19 12:05 Dose: 4 mg Ondansetron HCl (Zofran Odt) 4 mg TL Q6HR PRN PRN Reason: Nausea / Vomiting Prochlorperazine Edisylate (Compazine Inj) 10 mg IVP Q6HR PRN PRN Reason: Nausea / Vomiting Sodium Chloride (Normal Saline Flush 0.9%) 10 ml IVP PRN PRN PRN Reason: NEEDED PER PROVIDER ORDERS Sodium Chloride (Normal Saline Flush 0.9%) 10 ml IVP 0100,0900,1700 [facility] Last Admin: 04/12/19 10:42 Dose: Not Given No Known Home Medications 04/11/19
--- NOTE | 2019-04-12 15:22 | PROVIDER PROGRESS NOTE ---
Assessment/Plan - Problem List (1) Acute diverticulitis Assessment/Plan: Clinically slightly worse today, but disease appears to remain localized clinically, with no evidence of generalized peritonitis or abscess or bowel obstruction or generalized sepsis. Rec: add metronidazole to pip/oswald, add ketorolac and IV acetaminophen to analgesic regimen, ow continue present management. Discussed in detail with patient, , and hospitalist who agree with plan to try to avoid emergency surgery and need for colostomy. - Current Meds Current Meds: Current Medications Generic Name Dose Route Start Last Admin Trade Name Freq PRN Reason Stop Dose Admin Enoxaparin Sodium 40 mg 04/11/19 09:00 04/12/19 10:42 Lovenox SUBQ Not Given DAILY [facility] Piperacillin Sod/Tazobactam 100 mls @ 200 mls/hr 04/11/19 00:00 04/12/19 12:39 Sod 3.375 gm/ Sodium Chloride IV Infused Q6H [facility] Infusion Potassium Chloride/Dextrose/Sod Cl 1,000 mls @ 100 mls/hr 04/11/19 13:00 04/12/19 11:12 D5.45ns W/20 Meq Kcl IV 100 mls/hr .Q10H [facility] Administration Morphine Sulfate 2 mg 04/10/19 17:50 04/12/19 12:01 Morphine (Carpuject) IVP 2 mg Q2HR PRN Administration Pain 8 to 10 Ondansetron HCl 4 mg 04/10/19 17:50 04/12/19 12:05 Zofran Inj IVP 4 mg Q6HR PRN Administration Nausea / Vomiting Sodium Chloride 10 ml 04/11/19 01:00 04/12/19 10:42 Normal Saline Flush 0.9% IVP Not Given 0100,0900,1700 [facility] - Lab Result Fish Bone Diagrams: 04/12/19 05:05 04/12/19 05:05 - Diagnostic Imaging Results Diagnostic Imaging Results: Final report reviewed, Read independently Diagnostic Imaging Results Comments: repeat CT today shows increased inflammatory changes around sigmoid colon but no definite abscess or significant free fluid; continued tiny pockets of free air evident in the upper abd cavity. - Additional Planning Condition/Complexity: Stable My Orders: My Active Orders 04/12/19 CMP [COMPREHENSIVE METABOLIC PANEL] [CHEM] Routine 04/12/19 15:15 Acetaminophen 1,000 mg/100 ml [Ofirmev] 100 ml IV Q6HR Ketorolac Inj (30Mg) [Toradol Inj (30Mg)] 30 mg IVP Q6HR PRN Plan Discussed with:: Patient, Spouse, Other (hospitalist) Time Spent: 31-60 minutes Subjective - Subjective Patient Reports: Abdominal Pain (felt well until took dose of oral potassium, then felt much worse with increased abd pain; now feeling much better with pain level 2 in bed; passing flatus and stool, minimal nausea(after narcotic admin) no vomiting.), Nausea Objective Vital Signs: Vital Signs - 24 hr 04/11/19 04/12/19 04/12/19 15:53 00:00 08:00 Temperature 37 C 36.7 C 36.5 C Heart Rate [ 77 64 Brachial] Heart Rate [ 72 Monitoring electrodes] Respiratory 22 18 20 Rate Blood Pressure 161/82 H 129/85 H 144/88 H [Right Brachial artery] O2 Saturation 97 99 99 04/12/19 14:07 Temperature 37.1 C Heart Rate [ 88 Brachial] Heart Rate [ Monitoring electrodes] Respiratory 18 Rate Blood Pressure 140/82 H [Right Brachial artery] O2 Saturation 94 Oxygen O2 Source Room air I&O (Last 24 Hrs): Intake and Output Totals x24h 04/10/19 04/11/19 04/12/19 23:59 23:59 23:59 Intake Total 7871.905 1911.333 1370 Balance 4392.529 5676.333 1370 General: Alert, Oriented x3, Cooperative, Mild distress HEENT: Mucous membr. moist/pink Neck: No JVD Neuro: Alert Cardiovascular: Regular rate, Normal S1, Normal S2 Respiratory: Chest non-tender, No respiratory distress, Breath sounds nml Abdomen: Normal bowel sounds, Other (tender in LLQ with guarding/rebound; no generalized peritoneal signs) Extremities: No edema, No tenderness/swelling Skin: No rashes - Results Results: Laboratory Results WBC 6.8 x10^3/uL (4.8-10.8) 04/12/19 05:05 RBC 4.04 10^6/uL (4.20-5.40) L 04/12/19 05:05 Hgb 11.5 g/dL (12.0-16.0) L 04/12/19 05:05 Hct 36.7 % (37.0-47.0) L 04/12/19 05:05 MCV 90.8 fL (81.0-99.0) 04/12/19 05:05 MCH 28.5 pg (27.0-31.0) 04/12/19 05:05 MCHC 31.3 g/dL (32.0-36.0) L 04/12/19 05:05 RDW 13.3 % (12.0-15.0) 04/12/19 05:05 Plt Count 168 10^3/uL (130-450) 04/12/19 05:05 MPV 10.9 fL (7.9-10.8) H 04/12/19 05:05 Neut # (Auto) 5.0 10^3/uL (1.5-6.6) 04/12/19 05:05 Lymph # (Auto) 1.1 10^3/uL (1.5-3.5) L 04/12/19 05:05 [place] # (Auto) 0.5 10^3/uL (0.0-1.0) 04/12/19 05:05 Eos # (Auto) 0.2 10^3/uL (0.0-0.7) 04/12/19 05:05 Baso # (Auto) 0.0 10^3/uL (0.0-0.1) 04/12/19 05:05 Absolute Nucleated RBC 0.00 x10^3/uL 04/12/19 05:05 Nucleated RBC % 0.0 /100WBC 04/12/19 05:05 Sodium 143 mmol/L (135-145) 04/12/19 05:05 Potassium 3.4 mmol/L (3.5-5.0) L 04/12/19 05:05 Chloride 107 mmol/L (101-111) 04/12/19 05:05 Carbon Dioxide 28 mmol/L (21-32) 04/12/19 05:05 Anion Gap 8.0 (6-13) 04/12/19 05:05 BUN 6 mg/dL (6-20) 04/12/19 05:05 Creatinine 0.5 mg/dL (0.4-1.0) 04/12/19 05:05 Estimated GFR (MDRD) 125 (>89) 04/12/19 05:05 Glucose 103 mg/dL (70-100) H 04/12/19 05:05 Calcium 8.9 mg/dL (8.5-10.3) 04/12/19 05:05 Total Bilirubin 1.3 mg/dL (0.2-1.0) H 04/10/19 13:47 AST 22 IU/L (10-42) 04/10/19 13:47 ALT 18 IU/L (10-60) 04/10/19 13:47 Alkaline Phosphatase 91 IU/L (42-121) 04/10/19 13:47 Total Protein 7.0 g/dL (6.7-8.2) 04/10/19 13:47 Albumin 4.0 g/dL (3.2-5.5) 04/10/19 13:47 Globulin 3.0 g/dL (2.1-4.2) 04/10/19 13:47 Albumin/Globulin Ratio 1.3 (1.0-2.2) 04/10/19 13:47 Lipase 25 U/L (22-51) 04/10/19 13:47 Urine Color YELLOW 04/10/19 16:00 Urine Clarity CLEAR (CLEAR) 04/10/19 16:00 Urine pH 6.0 PH (5.0-7.5) 04/10/19 16:00 Ur Specific [place] 1.010 (1.002-1.030) 04/10/19 16:00 Urine Protein NEGATIVE mg/dL (NEGATIVE) 04/10/19 16:00 Urine Glucose (UA) NEGATIVE mg/dL (NEGATIVE) 04/10/19 16:00 Urine Ketones NEGATIVE mg/dL (NEGATIVE) 04/10/19 16:00 Urine Occult Blood TRACE-LYSE (NEGATIVE) 04/10/19 16:00 Urine Nitrite NEGATIVE (NEGATIVE) 04/10/19 16:00 Urine Bilirubin NEGATIVE (NEGATIVE) 04/10/19 16:00 Urine Urobilinogen 0.2 (NORMAL) E.U./dL (NORMAL) 04/10/19 16:00 Ur Leukocyte Esterase NEGATIVE (NEGATIVE) 04/10/19 16:00 Ur Microscopic Review NOT INDICATED 04/10/19 16:00 Urine Culture Comments NOT INDICATED 04/10/19 16:00 Sepsis Event Note (H) - Evaluation Current Stage of Sepsis: Ruled out ABX Reporting Has patient been on IV antibiotics over the past 48 hours?: Yes
[2019-04-12] MEDS: KETOROLAC 30 MG/ML VIAL IVP PRN ×2 (16:08→21:52)
[2019-04-12] MEDS: metroNIDAZOLE 500 MG/100 ML 500 MG/100 ML BAG IV SCH (16:09)
[2019-04-12 16:38] LABS: ALBUMIN 3.4 g/dL (3.2-5.5); ALBUMIN/GLOBULIN RATIO 1.2 (1.0-2.2); BILIRUBIN,TOTAL 0.8 mg/dL (0.2-1.0); CALCIUM 8.4 mg/dL (8.5-10.3); CREATININE 0.7 mg/dL (0.4-1.0); TOTAL PROTEIN 6.3 g/dL (6.7-8.2)
[2019-04-13] MEDS: metroNIDAZOLE 500 MG/100 ML 500 MG/100 ML BAG IV SCH ×3 (00:47→16:32)
[2019-04-13] MEDS: MAG HYDROX/AL HYDROX/SIMETH 30 ML UDC PO PRN ×6 (01:04→22:52)
[2019-04-13] MEDS: SODIUM CHLORIDE FLUSH 0.9% 10 ML SYRINGE IVP SCH ×3 (01:48→16:16)
[2019-04-13] MEDS: ONDANSETRON 4 MG/2 ML VIAL IVP PRN ×3 (02:35→16:10)
[2019-04-13] MEDS: ACETAMINOPHEN 1,000 MG/100 ML 100 ML IV PRN ×4 (02:39→22:19)
[2019-04-13 04:58] LABS: BASOPHILS % (AUTO) 0.3 %; EOSINOPHILS % (AUTO) 0.4 %; HGB - HEMOGLOBIN 12.8 g/dL (12.0-16.0); LYMPHOCYTES # (AUTO) 0.5 10^3/uL (1.5-3.5); LYMPHOCYTES % (AUTO) 4.8 %; MEAN CORPUSCULAR HEMOGLOBIN 27.9 pg (27.0-31.0); MEAN CORPUSCULAR HGB CONC 31.2 g/dL (32.0-36.0); MEAN CORPUSCULAR VOLUME 89.5 fL (81.0-99.0); MEAN PLATELET VOLUME 10.5 fL (7.9-10.8); MONOCYTES # (AUTO) 0.8 10^3/uL (0.0-1.0); MONOCYTES % (AUTO) 8.1 %; NEUTROPHILS # (AUTO) 8.2 10^3/uL (1.5-6.6); NEUTROPHILS % (AUTO) 85.8 %; PLT - PLATELET COUNT 213 10^3/uL (130-450); RED BLOOD COUNT 4.58 10^6/uL (4.20-5.40); RED CELL DISTRIBUTION WIDTH 13.6 % (12.0-15.0); WHITE BLOOD COUNT 9.5 x10^3/uL (4.8-10.8)
[2019-04-13 05:06] LABS: CALCIUM 8.8 mg/dL (8.5-10.3); CREATININE 0.7 mg/dL (0.4-1.0)
[2019-04-13] MEDS: PIPERACILLIN/TAZOBACTAM 3.375 GM in SODIUM CHLORIDE 0.9% MINIBAG 100 ML IV SCH ×3 (06:11→18:45)
[2019-04-13] MEDS: D5.45NS W/20 MEQ KCL 1,000 ML IV SCH ×2 (06:11→16:11)
[2019-04-13] MEDS ORDERED: PANTOPRAZOLE 40 MG TABLET PO SCH (07:00)
[2019-04-13] MEDS: ENOXAPARIN 40 MG/0.4 ML SYRINGE SUBQ SCH (08:06)
--- NOTE | 2019-04-13 10:14 | PROVIDER PROGRESS NOTE ---
Assessment/Plan - Problem List (1) Acute diverticulitis Assessment/Plan: Remains stable; LLQ pain is improved but she appears to be having side effects from antibiotics(N/V), but can not r/o ileus related to diverticulitis. Rec: continue present management; avoid po until sx improved. Re-image as necessary if fails to improve over next 24-48 hours. - Current Meds Current Meds: Current Medications Generic Name Dose Route Start Last Admin Trade Name Freq PRN Reason Stop Dose Admin Al Hydroxide/Mg Hydroxide 30 ml 04/13/19 00:10 04/13/19 09:03 Mylanta Plus PO 30 ml Q4HR PRN Administration INDIGESTION Enoxaparin Sodium 40 mg 04/11/19 09:00 04/13/19 08:06 Lovenox SUBQ Not Given DAILY [facility] Piperacillin Sod/Tazobactam 100 mls @ 200 mls/hr 04/11/19 00:00 04/13/19 06:49 Sod 3.375 gm/ Sodium Chloride IV Infused Q6H [facility] Infusion Potassium Chloride/Dextrose/Sod Cl 1,000 mls @ 100 mls/hr 04/11/19 13:00 04/13/19 06:11 D5.45ns W/20 Meq Kcl IV Not Given .Q10H [facility] Metronidazole 500 mg in 100 mls @ 100 mls/hr 04/12/19 16:00 04/13/19 10:09 Flagyl 500 Mg/100 Ml IV Infused Q8H [facility] Infusion Acetaminophen 100 mls @ 400 mls/hr 04/12/19 16:00 04/13/19 09:33 Ofirmev IV Infused Q6H PRN Infusion PAIN Ketorolac Tromethamine 30 mg 04/12/19 15:15 04/12/19 21:52 Toradol Inj (30mg) IVP 04/17/19 15:14 30 mg Q6HR PRN Administration PAIN Morphine Sulfate 2 mg 04/10/19 17:50 04/12/19 12:01 Morphine (Carpuject) IVP 2 mg Q2HR PRN Administration Pain 8 to 10 Ondansetron HCl 4 mg 04/10/19 17:50 04/13/19 08:02 Zofran Inj IVP 4 mg Q6HR PRN Administration Nausea / Vomiting Pantoprazole Sodium 40 mg 04/13/19 07:00 04/13/19 06:21 Protonix PO 40 mg QDAC [facility] Administration Sodium Chloride 10 ml 04/11/19 01:00 04/13/19 09:33 Normal Saline Flush 0.9% IVP Not Given 0100,0900,1700 [facility] - Lab Result Lab results reviewed: Yes Fish Bone Diagrams: 04/13/19 04:44 04/13/19 04:44 - Additional Planning Condition/Complexity: Stable My Orders: My Active Orders 04/12/19 15:15 Ketorolac Inj (30Mg) [Toradol Inj (30Mg)] 30 mg IVP Q6HR PRN 04/12/19 16:00 Acetaminophen 1,000 mg/100 ml [Ofirmev] 100 ml IV Q6H Plan Discussed with:: Patient, Family, Spouse Time Spent: 15-30 minutes Subjective - Subjective Patient Reports: Abdominal Pain (diminished LLQ pain; no longer using narcotics), Nausea (pt believes related to metronidazole) Objective Vital Signs: Vital Signs - 24 hr 04/12/19 04/12/19 04/13/19 14:07 16:00 00:00 Temperature 37.1 C 37.7 C H 37.0 C Heart Rate [ 88 90 84 Brachial] Respiratory 18 18 18 Rate Blood Pressure 140/82 H 121/67 115/66 [Right Brachial artery] O2 Saturation 94 97 94 04/13/19 07:35 Temperature 36.6 C Heart Rate [ 76 Brachial] Respiratory 20 Rate Blood Pressure 132/80 H [Right Brachial artery] O2 Saturation 95 Oxygen O2 Source Room air I&O (Last 24 Hrs): Intake and Output Totals x24h 04/11/19 04/12/19 04/13/19 23:59 23:59 23:59 Intake Total 4213.333 3270 600 Output Total 200 Balance 4213.333 3270 400 General: Alert, Oriented x3, Cooperative, Mild distress HEENT: Mucous membr. moist/pink Neck: No JVD Cardiovascular: Regular rate, Normal S1, Normal S2, No murmurs Respiratory: Chest non-tender, No respiratory distress, Breath sounds nml Abdomen: Other (hypoactive bowel tones; tender in LLQ, improved compared to yesterday; obese, unclear if distended) Extremities: No cyanosis, No edema, No tenderness/swelling - Results Results: Laboratory Results WBC 9.5 x10^3/uL (4.8-10.8) 04/13/19 04:44 RBC 4.58 10^6/uL (4.20-5.40) 04/13/19 04:44 Hgb 12.8 g/dL (12.0-16.0) 04/13/19 04:44 Hct 41.0 % (37.0-47.0) 04/13/19 04:44 MCV 89.5 fL (81.0-99.0) 04/13/19 04:44 MCH 27.9 pg (27.0-31.0) 04/13/19 04:44 MCHC 31.2 g/dL (32.0-36.0) L 04/13/19 04:44 RDW 13.6 % (12.0-15.0) 04/13/19 04:44 Plt Count 213 10^3/uL (130-450) 04/13/19 04:44 MPV 10.5 fL (7.9-10.8) 04/13/19 04:44 Neut # (Auto) 8.2 10^3/uL (1.5-6.6) H 04/13/19 04:44 Lymph # (Auto) 0.5 10^3/uL (1.5-3.5) L 04/13/19 04:44 [place] # (Auto) 0.8 10^3/uL (0.0-1.0) 04/13/19 04:44 Eos # (Auto) 0.0 10^3/uL (0.0-0.7) 04/13/19 04:44 Baso # (Auto) 0.0 10^3/uL (0.0-0.1) 04/13/19 04:44 Absolute Nucleated RBC 0.00 x10^3/uL 04/13/19 04:44 Nucleated RBC % 0.0 /100WBC 04/13/19 04:44 Sodium 140 mmol/L (135-145) 04/13/19 04:44 Potassium 3.6 mmol/L (3.5-5.0) 04/13/19 04:44 Chloride 107 mmol/L (101-111) 04/13/19 04:44 Carbon Dioxide 26 mmol/L (21-32) 04/13/19 04:44 Anion Gap 7.0 (6-13) 04/13/19 04:44 BUN 7 mg/dL (6-20) 04/13/19 04:44 Creatinine 0.7 mg/dL (0.4-1.0) 04/13/19 04:44 Estimated GFR (MDRD) 85 (>89) L 04/13/19 04:44 Glucose 151 mg/dL (70-100) H 04/13/19 04:44 Calcium 8.8 mg/dL (8.5-10.3) 04/13/19 04:44 Total Bilirubin 0.8 mg/dL (0.2-1.0) 04/12/19 15:40 AST 16 IU/L (10-42) 04/12/19 15:40 ALT 13 IU/L (10-60) 04/12/19 15:40 Alkaline Phosphatase 90 IU/L (42-121) 04/12/19 15:40 Total Protein 6.3 g/dL (6.7-8.2) L 04/12/19 15:40 Albumin 3.4 g/dL (3.2-5.5) 04/12/19 15:40 Globulin 2.9 g/dL (2.1-4.2) 04/12/19 15:40 Albumin/Globulin Ratio 1.2 (1.0-2.2) 04/12/19 15:40 Lipase 25 U/L (22-51) 04/10/19 13:47 Urine Color YELLOW 04/10/19 16:00 Urine Clarity CLEAR (CLEAR) 04/10/19 16:00 Urine pH 6.0 PH (5.0-7.5) 04/10/19 16:00 Ur Specific [place] 1.010 (1.002-1.030) 04/10/19 16:00 Urine Protein NEGATIVE mg/dL (NEGATIVE) 04/10/19 16:00 Urine Glucose (UA) NEGATIVE mg/dL (NEGATIVE) 04/10/19 16:00 Urine Ketones NEGATIVE mg/dL (NEGATIVE) 04/10/19 16:00 Urine Occult Blood TRACE-LYSE (NEGATIVE) 04/10/19 16:00 Urine Nitrite NEGATIVE (NEGATIVE) 04/10/19 16:00 Urine Bilirubin NEGATIVE (NEGATIVE) 04/10/19 16:00 Urine Urobilinogen 0.2 (NORMAL) E.U./dL (NORMAL) 04/10/19 16:00 Ur Leukocyte Esterase NEGATIVE (NEGATIVE) 04/10/19 16:00 Ur Microscopic Review NOT INDICATED 04/10/19 16:00 Urine Culture Comments NOT INDICATED 04/10/19 16:00 Sepsis Event Note (H) - Evaluation Current Stage of Sepsis: Ruled out ABX Reporting Has patient been on IV antibiotics over the past 48 hours?: Yes
[2019-04-13] MEDS ORDERED: PANTOPRAZOLE 40 MG in SODIUM CHLORIDE 0.9% 100ML 100 ML IV SCH (11:00)
[2019-04-13] MEDS: PANTOPRAZOLE 40 MG VIAL IVP SCH (11:04)
[2019-04-13] MEDS: ONDANSETRON ODT 4 MG TABLET TL SCH ×2 (12:03→18:44)
--- NOTE | 2019-04-13 16:08 | PROVIDER PROGRESS NOTE ---
Assessment/Plan - Problem List (1) Acute diverticulitis Assessment/Plan: Her left lower quadrant pain has improved and now she has nausea and vomiting which may be from an ileus or side effect of the antibiotics. We will continue with IV antibiotics. Await any cultures (2) Nausea Assessment/Plan: We will plan scheduled antiemetics so that she does not get breakthrough nausea. Continue clear liquid diet, not ready to advance yet (3) HTN (hypertension) Assessment/Plan: BP has been stable - Current Meds Current Meds: Current Medications Generic Name Dose Route Start Last Admin Trade Name Freq PRN Reason Stop Dose Admin Al Hydroxide/Mg Hydroxide 30 ml 04/13/19 00:10 04/13/19 13:25 Mylanta Plus PO 30 ml Q4HR PRN Administration INDIGESTION Enoxaparin Sodium 40 mg 04/11/19 09:00 04/13/19 08:06 Lovenox SUBQ Not Given DAILY CASSI Piperacillin Sod/Tazobactam 100 mls @ 200 mls/hr 04/11/19 00:00 04/13/19 13:36 Sod 3.375 gm/ Sodium Chloride IV Infused Q6H CASSI Infusion Potassium Chloride/Dextrose/Sod Cl 1,000 mls @ 100 mls/hr 04/11/19 13:00 04/13/19 11:27 D5.45ns W/20 Meq Kcl IV Infused .Q10H CASSI Infusion Metronidazole 500 mg in 100 mls @ 100 mls/hr 04/12/19 16:00 04/13/19 10:09 Flagyl 500 Mg/100 Ml IV Infused Q8H CASSI Infusion Acetaminophen 100 mls @ 400 mls/hr 04/12/19 16:00 04/13/19 09:33 Ofirmev IV Infused Q6H PRN Infusion PAIN Morphine Sulfate 2 mg 04/10/19 17:50 04/12/19 12:01 Morphine (Carpuject) IVP 2 mg Q2HR PRN Administration Pain 8 to 10 Ondansetron HCl 4 mg 04/10/19 17:50 04/13/19 08:02 Zofran Inj IVP 4 mg Q6HR PRN Administration Nausea / Vomiting Ondansetron HCl 4 mg 04/13/19 12:00 04/13/19 12:03 Zofran Odt TL 04/14/19 12:00 4 mg Q6HR CASSI Administration Pantoprazole Sodium 40 mg 04/13/19 11:00 04/13/19 11:04 Protonix IVP 40 mg QDAC CASSI Administration Sodium Chloride 10 ml 04/11/19 01:00 04/13/19 09:33 Normal Saline Flush 0.9% IVP Not Given 0100,0900,1700 CASSI - Lab Result Fish Bone Diagrams: 04/14/19 11:55 04/14/19 11:55 - Additional Planning My Orders: My Active Orders 04/13/19 12:00 Ondansetron Odt [Zofran Odt] 4 mg TL Q6HR 04/13/19 18:00 Ketorolac Inj (30Mg) [Toradol Inj (30Mg)] 30 mg IVP Q6HR Subjective - Subjective Patient Reports: Abdominal Pain, Diarrhea, Nausea Objective Vital Signs: Vital Signs - 24 hr 04/13/19 04/13/19 00:00 07:35 Temperature 37.0 C 36.6 C Heart Rate [ 84 76 Brachial] Respiratory 18 20 Rate Blood Pressure 115/66 132/80 H [Right Brachial artery] O2 Saturation 94 95 Oxygen O2 Source Room air I&O (Last 24 Hrs): Intake and Output Totals x24h 04/11/19 04/12/19 04/13/19 23:59 23:59 23:59 Intake Total 4213.333 3270 1700 Output Total 200 Balance 4213.333 3270 1500 General: Alert, Other (Appears disheveled and tired) HEENT: Mucous membr. moist/pink Neck: Supple Neuro: Non Focal Cardiovascular: Regular rate Respiratory: No respiratory distress Abdomen: Normal bowel sounds, Soft Extremities: No edema - Results Results: Laboratory Results WBC 9.5 x10^3/uL (4.8-10.8) 04/13/19 04:44 RBC 4.58 10^6/uL (4.20-5.40) 04/13/19 04:44 Hgb 12.8 g/dL (12.0-16.0) 04/13/19 04:44 Hct 41.0 % (37.0-47.0) 04/13/19 04:44 MCV 89.5 fL (81.0-99.0) 04/13/19 04:44 MCH 27.9 pg (27.0-31.0) 04/13/19 04:44 MCHC 31.2 g/dL (32.0-36.0) L 04/13/19 04:44 RDW 13.6 % (12.0-15.0) 04/13/19 04:44 Plt Count 213 10^3/uL (130-450) 04/13/19 04:44 MPV 10.5 fL (7.9-10.8) 04/13/19 04:44 Neut # (Auto) 8.2 10^3/uL (1.5-6.6) H 04/13/19 04:44 Lymph # (Auto) 0.5 10^3/uL (1.5-3.5) L 04/13/19 04:44 [place] # (Auto) 0.8 10^3/uL (0.0-1.0) 04/13/19 04:44 Eos # (Auto) 0.0 10^3/uL (0.0-0.7) 04/13/19 04:44 Baso # (Auto) 0.0 10^3/uL (0.0-0.1) 04/13/19 04:44 Absolute Nucleated RBC 0.00 x10^3/uL 04/13/19 04:44 Nucleated RBC % 0.0 /100WBC 04/13/19 04:44 Sodium 140 mmol/L (135-145) 04/13/19 04:44 Potassium 3.6 mmol/L (3.5-5.0) 04/13/19 04:44 Chloride 107 mmol/L (101-111) 04/13/19 04:44 Carbon Dioxide 26 mmol/L (21-32) 04/13/19 04:44 Anion Gap 7.0 (6-13) 04/13/19 04:44 BUN 7 mg/dL (6-20) 04/13/19 04:44 Creatinine 0.7 mg/dL (0.4-1.0) 04/13/19 04:44 Estimated GFR (MDRD) 85 (>89) L 04/13/19 04:44 Glucose 151 mg/dL (70-100) H 04/13/19 04:44 Calcium 8.8 mg/dL (8.5-10.3) 04/13/19 04:44 Total Bilirubin 0.8 mg/dL (0.2-1.0) 04/12/19 15:40 AST 16 IU/L (10-42) 04/12/19 15:40 ALT 13 IU/L (10-60) 04/12/19 15:40 Alkaline Phosphatase 90 IU/L (42-121) 04/12/19 15:40 Total Protein 6.3 g/dL (6.7-8.2) L 04/12/19 15:40 Albumin 3.4 g/dL (3.2-5.5) 04/12/19 15:40 Globulin 2.9 g/dL (2.1-4.2) 04/12/19 15:40 Albumin/Globulin Ratio 1.2 (1.0-2.2) 04/12/19 15:40 Lipase 25 U/L (22-51) 04/10/19 13:47 Urine Color YELLOW 04/10/19 16:00 Urine Clarity CLEAR (CLEAR) 04/10/19 16:00 Urine pH 6.0 PH (5.0-7.5) 04/10/19 16:00 Ur Specific [place] 1.010 (1.002-1.030) 04/10/19 16:00 Urine Protein NEGATIVE mg/dL (NEGATIVE) 04/10/19 16:00 Urine Glucose (UA) NEGATIVE mg/dL (NEGATIVE) 04/10/19 16:00 Urine Ketones NEGATIVE mg/dL (NEGATIVE) 04/10/19 16:00 Urine Occult Blood TRACE-LYSE (NEGATIVE) 04/10/19 16:00 Urine Nitrite NEGATIVE (NEGATIVE) 04/10/19 16:00 Urine Bilirubin NEGATIVE (NEGATIVE) 04/10/19 16:00 Urine Urobilinogen 0.2 (NORMAL) E.U./dL (NORMAL) 04/10/19 16:00 Ur Leukocyte Esterase NEGATIVE (NEGATIVE) 04/10/19 16:00 Ur Microscopic Review NOT INDICATED 04/10/19 16:00 Urine Culture Comments NOT INDICATED 04/10/19 16:00 Sepsis Event Note (H) - Evaluation Current Stage of Sepsis: Ruled out
[2019-04-13] MEDS: KETOROLAC 30 MG/ML VIAL IVP SCH ×2 (18:42→23:57)
[2019-04-13] MEDS ORDERED: PROCHLORPERAZINE 5 MG TABLET PO PRN (19:41)
[2019-04-14] MEDS: PIPERACILLIN/TAZOBACTAM 3.375 GM in SODIUM CHLORIDE 0.9% MINIBAG 100 ML IV SCH ×5 (00:05→23:04)
[2019-04-14] MEDS: ONDANSETRON ODT 4 MG TABLET TL SCH ×3 (00:06→12:05)
[2019-04-14] MEDS: metroNIDAZOLE 500 MG/100 ML 500 MG/100 ML BAG IV SCH ×3 (00:45→15:49)
[2019-04-14] MEDS: traZODone 50 MG TABLET PO SCH ×2 (00:55→21:07)
[2019-04-14] MEDS: D5.45NS W/20 MEQ KCL 1,000 ML IV SCH ×3 (00:59→21:07)
[2019-04-14] MEDS: CALCIUM CARBONATE CHEW 500 MG TABLET PO PRN ×2 (01:36→21:07)
[2019-04-14] MEDS: BENZOCAINE/MENTHOL LOZENGE MM PRN ×2 (01:36→21:19)
[2019-04-14] MEDS: ONDANSETRON 4 MG/2 ML VIAL IVP PRN (01:40)
[2019-04-14] MEDS: SODIUM CHLORIDE FLUSH 0.9% 10 ML SYRINGE IVP SCH ×3 (01:40→15:49)
[2019-04-14] MEDS: ACETAMINOPHEN 1,000 MG/100 ML 100 ML IV PRN ×3 (05:41→22:32)
[2019-04-14] MEDS: PANTOPRAZOLE 40 MG VIAL IVP SCH (06:08)
[2019-04-14] MEDS: KETOROLAC 30 MG/ML VIAL IVP SCH ×3 (06:08→18:35)
[2019-04-14] MEDS ORDERED: SIMETHICONE CHEW 80 MG TABLET PO PRN (07:05)
--- NOTE | 2019-04-14 09:01 | PROVIDER PROGRESS NOTE ---
Subjective - General Admit Date: 04/10/19 - Review of Systems General: positive: Other (Feeling much better. Minimal LLQ pain.) Gastrointestinal: positive: Nausea, Vomiting (Seeming to have difficulty w/ABX) Objective - Patient Data Reviewed Vital Signs: Yes Intake & Output: Intake and Output Totals x24h 04/12/19 04/13/19 04/14/19 23:59 23:59 23:59 Intake Total 3270 2400 1305 Output Total 700 Balance 3270 1700 1305 - Lab Results Lab Results: 04/13/19 04:44 04/13/19 04:44 - Current Medications Current Medications: Current Medications Generic Name Dose Route Start Last Admin Trade Name Freq PRN Reason Stop Dose Admin Calcium Carbonate/Glycine 500 mg 04/14/19 00:57 04/14/19 01:36 Tums PO 500 mg TID PRN Administration Heartburn Enoxaparin Sodium 40 mg 04/11/19 09:00 04/13/19 08:06 Lovenox SUBQ Not Given DAILY CASSI Piperacillin Sod/Tazobactam 100 mls @ 200 mls/hr 04/11/19 00:00 04/14/19 07:00 Sod 3.375 gm/ Sodium Chloride IV Infused Q6H CASSI Infusion Potassium Chloride/Dextrose/Sod Cl 1,000 mls @ 100 mls/hr 04/11/19 13:00 04/14/19 06:21 D5.45ns W/20 Meq Kcl IV 100 mls/hr .Q10H CASSI Administration Metronidazole 500 mg in 100 mls @ 100 mls/hr 04/12/19 16:00 04/14/19 01:46 Flagyl 500 Mg/100 Ml IV Infused Q8H CASSI Infusion Acetaminophen 100 mls @ 400 mls/hr 04/12/19 16:00 04/14/19 05:59 Ofirmev IV Infused Q6H PRN Infusion PAIN Ketorolac Tromethamine 30 mg 04/13/19 18:00 04/14/19 06:08 Toradol Inj (30mg) IVP 04/18/19 17:59 30 mg Q6HR CASSI Administration Morphine Sulfate 2 mg 04/10/19 17:50 04/12/19 12:01 Morphine (Carpuject) IVP 2 mg Q2HR PRN Administration Pain 8 to 10 Ondansetron HCl 4 mg 04/10/19 17:50 04/14/19 01:40 Zofran Inj IVP 4 mg Q6HR PRN Administration Nausea / Vomiting Ondansetron HCl 4 mg 04/13/19 12:00 04/14/19 00:06 Zofran Odt TL 04/14/19 12:00 Not Given Q6HR CASSI Pantoprazole Sodium 40 mg 04/13/19 11:00 04/14/19 06:08 Protonix IVP 40 mg QDAC CASSI Administration Sodium Chloride 10 ml 04/11/19 01:00 04/14/19 01:40 Normal Saline Flush 0.9% IVP 10 ml 0100,0900,1700 CASSI Administration Throat Lozenges 1 lozenge 04/14/19 00:59 04/14/19 01:36 Cepacol MM 1 lozenge Q2HR PRN Administration Throat pain Trazodone HCl 50 mg 04/14/19 00:35 04/14/19 00:55 Desyrel PO 50 mg QPM CASSI Administration - Physical Exam General Appearance: positive: No acute distress Abdomen: positive: Other (Very minimal LLQ pain) ABX Reporting Has patient been on IV antibiotics over the past 48 hours?: Yes Impression/Plan - Problem List Problem List: Acute diverticulitis w/microperf resolving Cont IV ABX Case discussed w/Hospitalist and we are in agreement
[2019-04-14] MEDS: ENOXAPARIN 40 MG/0.4 ML SYRINGE SUBQ SCH (09:39)
[2019-04-14 12:02] LABS: BASOPHILS % (AUTO) 0.3 %; EOSINOPHILS # (AUTO) 0.1 10^3/uL (0.0-0.7); EOSINOPHILS % (AUTO) 1.2 %; HGB - HEMOGLOBIN 12.3 g/dL (12.0-16.0); LYMPHOCYTES # (AUTO) 0.6 10^3/uL (1.5-3.5); LYMPHOCYTES % (AUTO) 5.3 %; MEAN CORPUSCULAR HEMOGLOBIN 28.3 pg (27.0-31.0); MEAN CORPUSCULAR HGB CONC 31.6 g/dL (32.0-36.0); MEAN CORPUSCULAR VOLUME 89.4 fL (81.0-99.0); MEAN PLATELET VOLUME 10.2 fL (7.9-10.8); MONOCYTES # (AUTO) 0.8 10^3/uL (0.0-1.0); MONOCYTES % (AUTO) 7.6 %; NEUTROPHILS # (AUTO) 9.3 10^3/uL (1.5-6.6); NEUTROPHILS % (AUTO) 85.1 %; PLT - PLATELET COUNT 230 10^3/uL (130-450); RED BLOOD COUNT 4.35 10^6/uL (4.20-5.40); RED CELL DISTRIBUTION WIDTH 13.3 % (12.0-15.0); WHITE BLOOD COUNT 10.9 x10^3/uL (4.8-10.8)
[2019-04-14 12:16] LABS: ALBUMIN/GLOBULIN RATIO 0.9 (1.0-2.2); BILIRUBIN,TOTAL 0.7 mg/dL (0.2-1.0); CALCIUM 8.4 mg/dL (8.5-10.3); CREATININE 0.9 mg/dL (0.4-1.0); TOTAL PROTEIN 6.2 g/dL (6.7-8.2)
[2019-04-14] MEDS ORDERED: SODIUM CHLORIDE 0.45% 1,000 ML IV ONE (15:27)
[2019-04-14] MEDS: METOCLOPRAMIDE 10 MG/2 ML VIAL IVP PRN ×2 (15:50→21:45)
--- NOTE | 2019-04-14 17:26 | PROVIDER PROGRESS NOTE ---
Assessment/Plan - Problem List (1) Acute diverticulitis Assessment/Plan: Abdominal pain has resolved completely. Diarrhea is decreasing. Will start to advance her diet tomorrow. Continue with IV antibiotic (2) Nausea Assessment/Plan: Her nausea finally resolved after a very large vomitus today. She is starting get an appetite. I will advance her to soft diet tomorrow. Possibly discharge tomorrow if there is no more severe nausea or abdominal pain (3) HTN (hypertension) Assessment/Plan: BP is stable - Current Meds Current Meds: Current Medications Generic Name Dose Route Start Last Admin Trade Name Freq PRN Reason Stop Dose Admin Calcium Carbonate/Glycine 500 mg 04/14/19 00:57 04/14/19 01:36 Tums PO 500 mg TID PRN Administration Heartburn Enoxaparin Sodium 40 mg 04/11/19 09:00 04/14/19 09:39 Lovenox SUBQ Not Given DAILY CASSI Piperacillin Sod/Tazobactam 100 mls @ 200 mls/hr 04/11/19 00:00 04/14/19 13:14 Sod 3.375 gm/ Sodium Chloride IV Infused Q6H CASSI Infusion Potassium Chloride/Dextrose/Sod Cl 1,000 mls @ 100 mls/hr 04/11/19 13:00 04/14/19 06:21 D5.45ns W/20 Meq Kcl IV 100 mls/hr .Q10H CASSI Administration Metronidazole 500 mg in 100 mls @ 100 mls/hr 04/12/19 16:00 04/14/19 15:49 Flagyl 500 Mg/100 Ml IV 100 mls/hr Q8H CASSI Administration Acetaminophen 100 mls @ 400 mls/hr 04/12/19 16:00 04/14/19 16:39 Ofirmev IV Infused Q6H PRN Infusion PAIN Ketorolac Tromethamine 30 mg 04/13/19 18:00 04/14/19 12:05 Toradol Inj (30mg) IVP 04/18/19 17:59 30 mg Q6HR CASSI Administration Metoclopramide HCl 5 mg 04/14/19 07:05 04/14/19 15:50 Reglan Inj IVP 5 mg Q6HR PRN Administration Nausea / Vomiting Morphine Sulfate 2 mg 04/10/19 17:50 04/12/19 12:01 Morphine (Carpuject) IVP 2 mg Q2HR PRN Administration Pain 8 to 10 Ondansetron HCl 4 mg 04/10/19 17:50 04/14/19 01:40 Zofran Inj IVP 4 mg Q6HR PRN Administration Nausea / Vomiting Pantoprazole Sodium 40 mg 04/13/19 11:00 04/14/19 06:08 Protonix IVP 40 mg QDAC CASSI Administration Simethicone 80 mg 04/14/19 07:05 04/14/19 15:49 Mylicon PO 80 mg 0900,1300,1800,2100 PRN Administration Gas Sodium Chloride 10 ml 04/11/19 01:00 04/14/19 15:49 Normal Saline Flush 0.9% IVP Not Given 0100,0900,1700 CASSI Throat Lozenges 1 lozenge 04/14/19 00:59 04/14/19 01:36 Cepacol MM 1 lozenge Q2HR PRN Administration Throat pain Trazodone HCl 50 mg 04/14/19 00:35 04/14/19 00:55 Desyrel PO 50 mg QPM CASSI Administration - Lab Result Fish Bone Diagrams: 04/14/19 11:55 04/14/19 11:55 - Additional Planning My Orders: My Active Orders 04/13/19 18:00 Ketorolac Inj (30Mg) [Toradol Inj (30Mg)] 30 mg IVP Q6HR Subjective - Subjective Patient Reports: Feeling Better, Resting Comfortably, Other (Nausea resolved after a 500 cc vomitus this morning, She is starting to get an appetite but) Objective Vital Signs: Vital Signs - 24 hr 04/13/19 04/14/19 23:54 16:00 Temperature 36.7 C 37.3 C Heart Rate [ 92 80 Brachial] Respiratory 16 18 Rate Blood Pressure 145/96 H 145/85 H [Right Brachial artery] O2 Saturation 96 98 Oxygen O2 Source Room air I&O (Last 24 Hrs): Intake and Output Totals x24h 04/12/19 04/13/19 04/14/19 23:59 23:59 23:59 Intake Total 3270 2400 1805 Output Total 700 Balance 3270 1700 1805 General: Alert, Oriented x3 HEENT: Mucous membr. moist/pink Neck: Supple Neuro: Alert, Non Focal Cardiovascular: Regular rate Respiratory: No respiratory distress Abdomen: Normal bowel sounds, Soft Extremities: No edema - Results Results: Laboratory Results WBC 10.9 x10^3/uL (4.8-10.8) H 04/14/19 11:55 RBC 4.35 10^6/uL (4.20-5.40) 04/14/19 11:55 Hgb 12.3 g/dL (12.0-16.0) 04/14/19 11:55 Hct 38.9 % (37.0-47.0) 04/14/19 11:55 MCV 89.4 fL (81.0-99.0) 04/14/19 11:55 MCH 28.3 pg (27.0-31.0) 04/14/19 11:55 MCHC 31.6 g/dL (32.0-36.0) L 04/14/19 11:55 RDW 13.3 % (12.0-15.0) 04/14/19 11:55 Plt Count 230 10^3/uL (130-450) 04/14/19 11:55 MPV 10.2 fL (7.9-10.8) 04/14/19 11:55 Neut # (Auto) 9.3 10^3/uL (1.5-6.6) H 04/14/19 11:55 Lymph # (Auto) 0.6 10^3/uL (1.5-3.5) L 04/14/19 11:55 [place] # (Auto) 0.8 10^3/uL (0.0-1.0) 04/14/19 11:55 Eos # (Auto) 0.1 10^3/uL (0.0-0.7) 04/14/19 11:55 Baso # (Auto) 0.0 10^3/uL (0.0-0.1) 04/14/19 11:55 Absolute Nucleated RBC 0.00 x10^3/uL 04/14/19 11:55 Nucleated RBC % 0.0 /100WBC 04/14/19 11:55 Sodium 138 mmol/L (135-145) 04/14/19 11:55 Potassium 3.9 mmol/L (3.5-5.0) 04/14/19 11:55 Chloride 102 mmol/L (101-111) 04/14/19 11:55 Carbon Dioxide 28 mmol/L (21-32) 04/14/19 11:55 Anion Gap 8.0 (6-13) 04/14/19 11:55 BUN 13 mg/dL (6-20) 04/14/19 11:55 Creatinine 0.9 mg/dL (0.4-1.0) 04/14/19 11:55 Estimated GFR (MDRD) 64 (>89) L 04/14/19 11:55 Glucose 138 mg/dL (70-100) H 04/14/19 11:55 Calcium 8.4 mg/dL (8.5-10.3) L 04/14/19 11:55 Total Bilirubin 0.7 mg/dL (0.2-1.0) 04/14/19 11:55 AST 10 IU/L (10-42) 04/14/19 11:55 ALT 10 IU/L (10-60) 04/14/19 11:55 Alkaline Phosphatase 72 IU/L (42-121) 04/14/19 11:55 Total Protein 6.2 g/dL (6.7-8.2) L 04/14/19 11:55 Albumin 3.0 g/dL (3.2-5.5) L 04/14/19 11:55 Globulin 3.2 g/dL (2.1-4.2) 04/14/19 11:55 Albumin/Globulin Ratio 0.9 (1.0-2.2) L 04/14/19 11:55 Lipase 25 U/L (22-51) 04/10/19 13:47 Urine Color YELLOW 04/10/19 16:00 Urine Clarity CLEAR (CLEAR) 04/10/19 16:00 Urine pH 6.0 PH (5.0-7.5) 04/10/19 16:00 Ur Specific [place] 1.010 (1.002-1.030) 04/10/19 16:00 Urine Protein NEGATIVE mg/dL (NEGATIVE) 04/10/19 16:00 Urine Glucose (UA) NEGATIVE mg/dL (NEGATIVE) 04/10/19 16:00 Urine Ketones NEGATIVE mg/dL (NEGATIVE) 04/10/19 16:00 Urine Occult Blood TRACE-LYSE (NEGATIVE) 04/10/19 16:00 Urine Nitrite NEGATIVE (NEGATIVE) 04/10/19 16:00 Urine Bilirubin NEGATIVE (NEGATIVE) 04/10/19 16:00 Urine Urobilinogen 0.2 (NORMAL) E.U./dL (NORMAL) 04/10/19 16:00 Ur Leukocyte Esterase NEGATIVE (NEGATIVE) 04/10/19 16:00 Ur Microscopic Review NOT INDICATED 04/10/19 16:00 Urine Culture Comments NOT INDICATED 04/10/19 16:00 Sepsis Event Note (H) - Evaluation Current Stage of Sepsis: Ruled out
[2019-04-14] MEDS: SODIUM CHLORIDE FLUSH 0.9% 10 ML SYRINGE IVP PRN (21:48)
[2019-04-14] MEDS ORDERED: SUCRALFATE 1 GM/10 ML UDC PO PRN (21:56)
[2019-04-15] MEDS: metroNIDAZOLE 500 MG/100 ML 500 MG/100 ML BAG IV SCH ×2 (00:10→08:23)
[2019-04-15] MEDS: SODIUM CHLORIDE FLUSH 0.9% 10 ML SYRINGE IVP SCH ×2 (00:10→07:58)
[2019-04-15] MEDS: KETOROLAC 30 MG/ML VIAL IVP SCH ×2 (00:10→06:24)
[2019-04-15 05:01] LABS: ALKALINE PHOSPHATASE 67 IU/L (42-121); ALT ALANINE AMINOTRANSFERASE < 10 IU/L (10-60); AST ASPARTATE AMINOTRANSFERASE 11 IU/L (10-42); BILIRUBIN,TOTAL 0.4 mg/dL (0.2-1.0); BUN - BLOOD UREA NITROGEN 16 mg/dL (6-20); CALCIUM 8.3 mg/dL (8.5-10.3); CARBON DIOXIDE - CO2 26 mmol/L (21-32); CHLORIDE 104 mmol/L (101-111); CREATININE 0.7 mg/dL (0.4-1.0); GFR - MDRD 85 (>89); GLUCOSE 127 mg/dL (70-100); SODIUM 138 mmol/L (135-145); TOTAL PROTEIN 6.1 g/dL (6.7-8.2)
[2019-04-15 05:31] LABS: BASOPHILS % (AUTO) 0.4 %; EOSINOPHILS # (AUTO) 0.3 10^3/uL (0.0-0.7); EOSINOPHILS % (AUTO) 3.4 %; HGB - HEMOGLOBIN 11.8 g/dL (12.0-16.0); LYMPHOCYTES # (AUTO) 0.8 10^3/uL (1.5-3.5); LYMPHOCYTES % (AUTO) 8.1 %; MEAN CORPUSCULAR HEMOGLOBIN 28.4 pg (27.0-31.0); MEAN CORPUSCULAR HGB CONC 31.6 g/dL (32.0-36.0); MEAN CORPUSCULAR VOLUME 90.1 fL (81.0-99.0); MONOCYTES # (AUTO) 0.8 10^3/uL (0.0-1.0); MONOCYTES % (AUTO) 7.6 %; NEUTROPHILS # (AUTO) 7.9 10^3/uL (1.5-6.6); PLT - PLATELET COUNT 242 10^3/uL (130-450); RED BLOOD COUNT 4.15 10^6/uL (4.20-5.40); RED CELL DISTRIBUTION WIDTH 13.4 % (12.0-15.0); WHITE BLOOD COUNT 9.9 x10^3/uL (4.8-10.8)
[2019-04-15] MEDS: PIPERACILLIN/TAZOBACTAM 3.375 GM in SODIUM CHLORIDE 0.9% MINIBAG 100 ML IV SCH (06:23)
[2019-04-15] MEDS: SODIUM CHLORIDE FLUSH 0.9% 10 ML SYRINGE IVP PRN (06:28)
[2019-04-15] MEDS: PANTOPRAZOLE 40 MG VIAL IVP SCH (06:28)
[2019-04-15] MEDS: ENOXAPARIN 40 MG/0.4 ML SYRINGE SUBQ SCH (08:23)
[2019-04-15 08:36] VITALS: BP 134/87
--- NOTE | 2019-04-15 10:07 | Discharge Plan ---
Discharge Plan Problem Reviewed?: Yes Disposition: Home, Self Care Condition: Stable Prescriptions: Ciprofloxacin HCl [Cipro] 500 mg PO BID #10 tablet Metronidazole [Flagyl] 375 mg PO BID #10 capsule Pantoprazole [Protonix] 40 mg PO BID #60 tablet Saccharomyces Boulardii [Florastor] 250 mg PO BID #10 capsule Simethicone [Gas Relief] 80 mg PO TID PRN #12 tab.chew PRN Reason: Gas Sucralfate [Carafate] 1 gm PO TID PRN #90 ml PRN Reason: Heartburn Diet: Soft Activity Restrictions: Activity as Tolerated Shower Restrictions: No Driving Restrictions: No Instruction Topics: Diverticulosis Diverticulitis, Diverticulitis Dc, ED Diverticulitis Health Concerns: You were admitted with a severe case of diverticulitis. Nausea and vomiting may have been from an ileus or antibiotic side effects. You are being discharged to take several more days of antibiotics, probiotics to take to prevent diarrhea, anti-acid liquid and pill, and anti-gas medications. The prescriptions were sent electronically to [facility] in [place]. Advance your diet slowly as tolerated. The recommended diet is a bland, BRAT diet (bread, rice, applesauce, tea). Stay well hydrated, using broths or electrolyte drinks like Gatorade or Propel. Do not take milk products or high- fiber foods because these are hard to digest. See your PCP in the next 1 to 2 weeks for follow-up. If you have new or worsening symptoms, call your PCP for advice or come to the ER. Plan of Treatment: As above. Care Goals: Improvement in symptoms and stabilization is the goal. Assessment: The patient understands and is agreeable with the plan. No Smoking: If you smoke, Please STOP! Call for help.
--- NOTE | 2019-04-15 10:20 | DISCHARGE SUMMARY ---
"Discharge Summary Admit Date: 04/10/19 Discharge Date: 04/15/19 Discharging Provider: Dr Tereza Santiago Code Status: Attempt Resuscitation Condition at Discharge: Stable Discharge Disposition: 01 Home, Self Care - DIAGNOSES Admission Diagnoses: (1) Acute diverticulitis (2) Free intraperitoneal air (3) HTN (hypertension) (4) Obesity (BMI 35.0-39.9 without comorbidity) Discharge Diagnoses with Status of Each Condition: See below - HPI History of Present Illness: From the admission H&P of Gómez Arreaga NP: Ms. Mcfarlane is a 63-yrs-old female with a PMH significant for diverticulitis with bleeding and clipping of the bleeding vessel in 2014, who had been stable and on no meds currently, she presented to the ER complaining of abdominal pain. She reported left, middle and lower abdominal pain beginning this morning. She denied nausea, vomiting, diarrhea, GI bleeding, fever, chill, chest pain, shortness of breath. CT of abdomen revealed acute diverticulitis, and small amounts of intraperitoneal free air. Route labs revealed slight elevated WBC of 11.1 with left shift. She was afebrile and hemodynamical stable. The surgeon was contacted for a consult by ER provider and the patient was admitted to the Hospitalist service. - CONSULTS | PROCEDURES Consultations: Dr Joseph Mead - HOSPITAL COURSE Hospital Course: (1) Acute diverticulitis She was kept n.p.o. for bowel rest. She received iv Rocephin in the ER then was started on IV Flagyl and because of continued and worsening symptoms, iv Zosyn was added. There was concern of perforation of the bowel because free air was seen in the intraperitoneum. The inside sales consultant recommended repeat CT imaging. This showed worsening of her colon wall thickening but no worsening of the intraperitoneal air. She was treated medically and did not need surgery. The abdominal pain finally resolved after 4 days and the diarrhea was decreasing. She was sent home with several more days of oral Cipro and Flagyl, plus Florastor probiotic, to finish her course of treatment. Was advised to advance her diet slowly. (2) Nausea Just after admission, she had diarrhea, then severe nausea with copious vomiting. She may have had an ileus or been sensitive to the antibiotics being used. She required antiemetics for many days before clear liquids could be started. She also had relief with simethicone, needed antacids and sucralfate liquid, with which she was discharged. (3) Hypokalemia This was likely related to fluid losses from vomiting and diarrhea. Potassium was replaced IV and the BMP was followed daily. (4) HTN (hypertension) BP was Elevated when she was in moderate to severe distress. - ALLERGIES Allergies/Adverse Reactions: Allergies Allergy/AdvReac Type Severity Reaction Status Date / Time etodolac Allergy Rash Verified 04/10/19 21:34 - MEDICATIONS Home Medications: Ambulatory Orders Medication Instructions Recorded Confirmed Ciprofloxacin HCl [Cipro] 500 mg PO BID #10 tablet 04/15/19 Metronidazole [Flagyl] 375 mg PO BID #10 capsule 04/15/19 Pantoprazole [Protonix] 40 mg PO BID #60 tablet 04/15/19 Saccharomyces Boulardii [Florastor] 250 mg PO BID #10 capsule 04/15/19 Simethicone [Gas Relief] 80 mg PO TID PRN #12 tab.chew 04/15/19 Sucralfate [Carafate] 1 gm PO TID PRN #90 ml 04/15/19 - PHYSICAL EXAM AT DISCHARGE General Appearance: positive: No acute distress, Alert Eyes Bilateral: positive: Normal inspection, PERRL, EOMI ENT: positive: ENT inspection nml Neck: positive: Nml inspection, No JVD Respiratory: positive: Chest non-tender, No respiratory distress Cardiovascular: positive: Regular rate & rhythm, No murmur Abdomen: positive: Non-tender, Nml bowel sounds Skin: positive: Color nml Extremities: positive: No pedal edema Neurologic/Psychiatric: positive: Oriented x3, Other (Grossly normal) - LABS Result Diagrams: 04/15/19 04:40 04/15/19 04:40 - DIAGNOSTIC IMAGING Diagnostic Imaging Results: Final report reviewed - FOLLOW UP Follow Up: See PCP in the [place] area, after she returns home in 1 week from her visit here on [facility]. - TIME SPENT Time Spent in Discharge (Minutes): 60"
== END 2019-04-15 11:08 | disposition home or self-care (01) | DRG 392 ==
LOC: ED 13:05 → MS3 17:50
PROVIDERS: ADMIT Specialist; ATTEND Internal Medicine
DX: K57.20 Diverticulitis of large intestine with perforation and abscess without bleeding (principal); K56.7 Ileus, unspecified; R11.2 Nausea with vomiting, unspecified; E87.6 Hypokalemia; I10 Essential (primary) hypertension; E66.9 Obesity, unspecified; Z68.37 Body mass index [BMI] 37.0-37.9, adult; T36.95XA Adverse effect of unspecified systemic antibiotic, initial encounter; Y92.230 Patient room in hospital as the place of occurrence of the external cause; Z87.891 Personal history of nicotine dependence
CPT/HCPCS: 36415; 74177; 80048; 80053; 81003; 83690; 85025; 96361; 96374; 99284; 99285; A9270; J0131; J1650; J2765; Q0162; Q9967; 81001; 87086